=== PATIENT | male | born 1945 | race Asian ===

== ENCOUNTER 2023-10-14 22:47 | Inpatient (IN) | payer OTHER, SELFPAY ==
--- NOTE | ~2023-10-14 | XR_ITS ---
EXAMINATION: XR PRE-MRI SCREENING, 2 VIEWS CLINICAL INFORMATION: Pre-MRI screening patient unable to answer screening questions COMPARISON: None available. TECHNIQUE: 2 views of the abdomen FINDINGS: Radiopaque calcification overlying the left renal interpolar/upper pole shadow measuring 1.1 cm. Pelvic phleboliths are noted. Bowel gas is nonobstructive. Degenerative changes of the thoracolumbar lumbosacral spine with slight levocurvature of the mid lumbar spine. Elevation the right hemidiaphragm. Soft tissues are unremarkable. No radiopaque foreign bodies identified. XR/XR pre mri screening IMPRESSION: 1. Radiopaque calcification overlying the left renal interpolar/upper pole shadow measuring 1.1 cm. 2. Pelvic phleboliths are noted. 3. Bowel gas is nonobstructive. 4. Elevation the right hemidiaphragm. 5. No radiopaque foreign bodies identified.
--- NOTE | ~2023-10-14 | MR_ITS ---
EXAMINATION: MR BRAIN WITHOUT CONTRAST CLINICAL INFORMATION: Left-sided weakness COMPARISON: CT head 10/14/2023 TECHNIQUE: MRI of the brain was obtained using routine sequences without contrast. FINDINGS: There is no reduced diffusion to suggest acute infarct. Chronic small area of lacunar infarction along the anterior left external capsule. Small focus of susceptibility artifact along the left ventral bertha may represent a small vascular malformation such as a capillary telangiectasia or chronic microhemorrhage. No mass effect, extra-axial collection, midline shift, or other herniation. Empty sella turcica. Generalized cerebral volume loss with associated ventricular and sulcal prominence. Punctate T2/FLAIR hyperintense focus in the right frontal lobe is nonspecific but likely represents chronic microvascular ischemic change. Intracranial flow voids are preserved. Scattered polypoid mucosal thickening in the paranasal sinuses. Moderate left mastoid opacification. Bilateral intraocular lens replacements. No focal expansile/destructive osseous lesion. MR/MR head/brain wo con IMPRESSION: No acute infarction. Generalized cerebral volume loss with associated ventricular and sulcal prominence. Chronic changes as described above.
--- NOTE | ~2023-10-14 | FL_ITS ---
FLUOROSCOPIC GUIDED LUMBAR PUNCTURE INDICATION: Encephalopathy Risks and benefits and possible complications were discussed with the patient's son and the consent form was signed. Patient was placed prone on the fluoroscopy table. The back was prepped and draped in routine sterile fashion. Betadine was used as a skin antiseptic. Utilizing fluoroscopic guidance, the L4-5 interlaminar space was accessed with a 22 gauge Juaquin spinal needle and clear CSF fluid obtained. 12 cc of fluid was sent for analysis. The needle was removed without immediate complications. Total fluoroscopy time: 0.2 minutes min FL/FL guided lumbar puncture LP IMPRESSION: Successful Fluoroscopic lumbar puncture This procedure was performed by Orlin Garza PA-C and supervised by Dr. Espino.
--- NOTE | ~2023-10-14 | CT_ITS ---
EXAMINATION: CT chest, abdomen pelvis without IV contrast. CLINICAL INDICATIONS: Elevated lactic acid. Chest pain. COMPARISON: None. TECHNIQUE: 5 mm thin axial and reformatted 3 mm thin sagittal and coronal images of chest, abdomen and pelvis were obtained without contrast. DLP 939. This CT examination was performed using dose optimization technique as appropriate, variously including the following: Automated exposure control Adjustment of MA and/or KV according to patient size(this includes techniques or standardized protocols for targeted exams where dose is matched to indication/reason for exam; extremities or head. Use of iterative reconstruction techniques. FINDINGS: CHEST: LUNGS: The lungs are well-expanded with patchy atelectasis right upper lobe posterior segment and posterior basilar segment right lower lobe. No consolidation, mass or nodule seen. Mediastinum: The thyroid lobes are symmetrical and normal. The central trachea and the bronchi widely patent. Heart size and the great vessels are normal caliber. No pericardial effusion seen. No coronary artery calcifications. No abnormal size mediastinal or hilar lymph nodes seen. Pleura: There is a small pleural effusion or and/or thickening right lung base. Minimal posterior pleural thickening left lung base seen. Axilla: Small shotty lymph nodes seen in the right axilla. The chest wall is unremarkable. Osseous structures: No aggressive lytic or sclerotic process seen. Abdomen and pelvis: Liver, ducts and gallbladder: The liver is normal size, contour and density. No focal lesion seen. There is no intrahepatic ductal dilatation. The gallbladder is unremarkable. Spleen: Unremarkable. Pancreas: Unremarkable. Adrenal glands: Unremarkable. Kidneys and ureter: Both kidney are normal size contour and density. There is bilateral perinephric stranding. There is a large 1.2 cm upper pole left renal stone without caliectasis. No additional renal stones seen. There is no hydronephrosis. The ureters are of normal caliber. Abdominal wall: Unremarkable. GI tract: There is scattered stool and gas seen throughout the colon without significant distention. The small bowel loops are normal caliber. Appendix is not visualized. There is no free air or free fluid. Pelvis: The there is a Oneill's catheter in bladder with mild bladder wall thickening. The prostate gland is enlarged. There is no free fluid. There is left inguinal fat stranding likely scar from previous intervention. Correlate clinically. Osseous structures: No aggressive lytic or sclerotic process seen. The paravertebral soft tissues are normal. CT/CT abdomen pelvis wo IV con IMPRESSION: 1. Right upper lobe and right lower lobe atelectasis. 2. There is a small right pleural effusion and/or pleural thickening at the base. Minimal posterior pleural thickening left lung base. 3. Mild constipation without obstruction. 4. Bilateral perinephric stranding without caliectasis or hydronephrosis. There is a large 1.2 cm stone upper pole left kidney without caliectasis. 5. Mild prostate enlargement with Oneill's catheter in bladder. There is mild bladder wall thickening. 6. Left inguinal fat stranding likely scar from previous intervention.
--- NOTE | ~2023-10-14 | XR_ITS ---
EXAMINATION: XR CHEST CLINICAL INFORMATION: Fever COMPARISON: None available. TECHNIQUE: Frontal view of the chest was obtained. FINDINGS: The lungs are hypoinflated. There is suggestion of minimal bibasilar atelectasis without definite consolidation. No evidence of pneumothorax, pleural effusion, or pulmonary edema. The cardiomediastinal contour is unremarkable. No acute osseous findings are seen. XR/XR chest 1V IMPRESSION: Low lung volumes. Suggestion of minimal bibasilar atelectasis without definite consolidation.
--- NOTE | ~2023-10-14 | MR_ITS ---
EXAMINATION: MR BRAIN WITHOUT AND WITH CONTRAST CLINICAL INFORMATION: Encephalitis. COMPARISON: Recent MRI dated 10/15/2023. TECHNIQUE: Multiplanar, multisequence imaging of the brain was performed before and after the intravenous administration of 8 mL of Gadavist. 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 No midline shift evident. Nonspecific minimal scattered white matter signal changes may be due to chronic microangiopathy. Ventricular size is within normal limits. There is a faint 5 mm blush of contrast and minimal T2 hyperintensity in the left ventromedial aspect of the bertha, which may be due to an underlying capillary telangiectasia. No abnormal brain parenchymal enhancement is otherwise seen. There is mild linear pachymeningeal enhancement along both cerebral convexities, also visible to a lesser degree in the posterior fossa. The cerebellar tonsils are normal in position. The suprasellar cistern appears normal. Partially empty sella again evident. Mild prominence of CSF in the optic nerve sheaths bilaterally is better assessed on the recent prior MR exam. No new mass effect or midline shift is seen. The craniovertebral junction and marrow signal are normal. The right mastoid air cells are well aerated. There is mild mucosal thickening in the paranasal sinuses. Trace fluid visible in the dependent left mastoid air cells. 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 Mild pachymeningeal enhancement supratentorially and infratentorially. No cerebellar tonsillar ectopia. Partially empty sella. Imaging findings can be seen in the setting of intracranial hypertension, though subdural collections are typically associated with intracranial hypotension. Recommend clinical correlation. Small 5 mm focus of enhancement in the ventromedial bertha, which is nonspecific but may be due to an incidental small capillary telangiectasia.
--- NOTE | ~2023-10-14 | CT_ITS ---
EXAMINATION: CT HEAD WITHOUT CONTRAST CLINICAL INFORMATION: Transient slurred speech COMPARISON: None available. TECHNIQUE: Contiguous axial imaging was performed from the skull base to vertex without intravenous administration of contrast. This CT examination was performed using dose optimization techniques as appropriate, variously including the following: *Automated exposure control *Adjustment of mA and/or kV according to patient size (this includes techniques or standardized protocols for targeted exams where dose is matched to indication/reason for exam; i.e. extremities or head) *Use of iterative reconstruction technique DLP: 866 mGy-cm FINDINGS: There is no evidence of acute intracranial hemorrhage or territorial infarction. No abnormal mass-effect or midline shift is seen. Albright to white matter differentiation is well preserved. No extra-axial fluid collections are identified. The ventricles are normal in size. Small chronic appearing lacunar infarct noted in the left external capsule. Moderate volume loss is noted. The osseous structures and soft tissues are normal. Partially opacified left mastoid air cells. Slight mucosal thickening of the left maxillary sinus. CT/CT head/brain wo IV con IMPRESSION: No acute intracranial pathology. Chronic appearing changes as noted above.
--- NOTE | 2023-10-14 22:55 | ECG_ITS ---
Test Reason : WEACKNESS Blood Pressure : / mmHG Vent. Rate : 112 BPM Atrial Rate : 112 BPM P-R Int : 158 ms QRS Dur : 074 ms QT Int : 320 ms P-R-T Axes : 070 030 063 degrees QTc Int : 436 ms Sinus tachycardia Otherwise normal ECG No previous ECGs available Referred By: Rosa Dahl Electronically Signed By:Garrison Vaca
[2023-10-14 22:56] LABS: Glucose, Whole Blood 411 mg/dL (60-115)
[2023-10-14 22:59] VITALS: BP 180/110
--- NOTE | 2023-10-14 23:00 | PC.NURSE ---
Pt A&Ox3, Tamil speaking, understands some Tajik, son at bedside, reports DOTY x 2 days after a fall with + head strike. Tonight son reported Pt had left side facial droop, slurred speech and left sided weakness, on arrival symptoms resolved. Pt following commands, No facial droop noted, equal hand skin therapist, no arm drift noted, equal lower extremity strength. Pt placed on bedside monitor, labs collected and sent to lab.
[2023-10-14 23:01] VITALS: BP 180/111; PULSE 113; RESP 17; TEMP 36.3; O2SAT 98; BMI 24.0
--- NOTE | 2023-10-14 23:09 | ED.NEUROSD ---
HPI - Neuro Symptoms/Deficit General Chief Complaint: Stroke Stated Complaint: SUDDEN SLURRED SPEECH,L SIDE FACIAL DROOP Time Seen by Provider: 10/14/23 22:54 Source: patient, family and EMS Mode of arrival: EMS History of Present Illness HPI Narrative: 77-year-old male arrives via EMS with symptoms completely resolved, son is at bedside and overall history is at patient woke up at around 22:00 and the noted slurred speech as well as a left-sided facial droop which has completely resolved at the time of patient's arrival and it was associated with left-sided weakness. Patient reports a headache for 2 days after a fall and head strike and not currently on chronic anticoagulation. Patient is noted to be hyperglycemic and hypertensive. Related Data Allergies Allergy/AdvReac Type Severity Reaction Status Date / Time No Known Allergies Allergy Verified 10/15/23 00:01 Review of Systems Review of Systems: Pertinent positives and negatives as stated in HPI PMFSH Past Medical History Source: nursing notes reviewed Social History Social History Advance Directives: No Advance Directives Information Provided: No Physical Exam Vital Signs: Vital Signs: Last Vital Signs Temp 99.4 F 10/14/23 23:23 Pulse 121 H 10/14/23 23:44 Resp 20 10/14/23 23:44 BP 139/79 10/14/23 23:44 Pulse Ox 99 10/14/23 23:44 O2 Del Method Nasal Cannula 10/14/23 23:44 O2 Flow Rate 2 10/14/23 23:44 BMI result Body Mass Index 24.0 VITAL SIGNS: Reviewed. GENERAL: Well developed, well nourished, in no acute distress. HEAD: Normocephalic/atraumatic EYES: PERRLA, EOMI EARS: Ext canals without abnormality NOSE: Nares patent bilateral OROPHARYNX: no oral lesions noted, posterior pharynx clear NECK: Supple, no adenopathy LUNGS: Normal breath sounds. No adventitious sounds or accessory muscle use. SpO2<98> CARDIOVASCULAR: Regular rate and rhythm without noted murmurs ABDOMEN: Soft, non-tender, non-distended with bowel sounds. MUSCULOSKELETAL: No tenderness, deformities, or effusions noted on gross inspection. EXTREMITIES: No cyanosis, clubbing or edema. SKIN: Inspection of the skin reveals no rashes NEUROLOGIC: Alert and oriented x 4. Strength and sensation to light touch were grossly intact x 4, NIH-0. Medications Administered Generic Name Dose Route Start Last Admin Trade Name Freq PRN Reason Stop Dose Admin Sodium Chloride 1,000 mls @ 999 mls/hr 10/15/23 00:15 10/15/23 00:18 Ns IV 10/15/23 01:15 999 mls/hr .Q1H1M TONYA Administration Discontinued Medications Generic Name Dose Route Start Last Admin Trade Name Freq PRN Reason Stop Dose Admin Lorazepam 2 mg 10/14/23 23:15 10/14/23 23:20 Lorazepam 2 Mg/Ml Vial IVPUSH 10/14/23 23:16 2 mg ONCE ONE Administration Medical Decision Making Medical Decision Making [facility] Narrative: 77-year-old male with history and clinical presentation of some shaking reported by the in addition to the neuro deficits. All symptoms have resolved at this time suspect possible TIA versus subdural. 2320: Informed by nursing of [facility] and on evaluating patient at bedside he presents with tonic clonic seizure with leftward gaze. Gave 2mg Ativan. 0030: On re-evaluation patient remains postictal, he is actively moving the right upper extremity as well as the right lower extremity, on painful stimuli he does retract from painful source on the left side but does not appear to be spontaneously moving, pupils remain symmetrical and reactive, patient is hemodynamically stable although remains tachycardic and is currently getting IV fluids and is afebrile. CT scan negative for evidence of intracranial bleed or mass effect. Blood pressure has significantly improved and reaching out to Neurology at this time for further direction. I have spoken with the family at bedside and they deny any recent changes in behaviors, no changes in medications, and no recent travel, patient's last travel was in July. The seizures are certainly new. On review of patient's kidney function he is diabetic and has an CYNTHIA although there are no other lab findings to better quantify. 0040: I discussed case with Neurology who recommends admission for further evaluation of seizure activity, tPA contraindicated given seizures. Patient is afebrile and LP not indicated this time, will Keppra load. 0042: I discussed case with inpatient hospitalist who accepts admission. Differential Diagnosis Differential Diagnoses: The differential diagnosis associated with the presentation includes Please see the discussion above Admission/Observation Consideration of admission/observation: Escalation of care including admission/observation considered Please see the discussion above Consult Healthcare Provider Management of the patient was discussed with: Hospitalist and Document Management Technician Please see the discussion above Lab Data MDM Lab Attestation statement: I reviewed the patient's lab results. Please see the discussion above 10/14/23 23:14 10/14/23 23:14 Labs: Lab Results 10/14/23 10/14/23 Range/Units 22:52 23:14 WBC 9.2 (4.8-10.8) X10*3/uL RBC 4.40 L (4.60-5.80) X10*6/uL Hgb 13.0 L (14.0-18.0) g/dl Hct 38.7 L (42.0-52.0) % MCV 88.0 (80.0-98.0) fL MCH 29.5 (27.0-33.0) pg MCHC 33.6 (31.0-36.0) g/dl RDW 13.2 (11.0-16.0) % Plt Count 167 (160-400) X10*3/uL MPV 12.5 H (9.4-12.4) fL Immature Gran % (Auto) 0.4 (0.0-0.4) % Neut % (Auto) 53.4 (45-73) % Lymph % (Auto) 30.8 (20-40) % Sebastian % (Auto) 8.6 (2-11) % Eos % (Auto) 5.8 H (0-4) % Baso % (Auto) 1.0 (0-2) % Lymph # (Auto) 2.8 (1.2-4.9) X10*3/uL Sebastian # (Auto) 0.8 (0.1-1.2) X10*3/uL Eos # (Auto) 0.5 H (0.0-0.4) X10*3/uL Baso # (Auto) 0.1 (0.0-0.2) X10*3/uL Abs Immat Gran (auto) 0.04 H (0.00-0.03) X10*3/uL Absolute Neuts (auto) 4.9 (2.0-8.3) x10*3/uL Absolute Nucleated RBC 0.000 (0.0-0.012) X10*3/uL Nucleated RBC % (auto) 0.0 (0.0-0.2) /100WBC PT 11.3 (11.1-13.3) SEC INR 0.9 (0.9-1.1) Sodium 138 (135-145) mmol/L Potassium 4.1 (3.3-5.1) mmol/L Chloride 102 (96-108) mmol/L Carbon Dioxide 25 (22-29) mmol/L Anion Gap 15 (12-20) BUN 19 H (9-16) mg/dL Creatinine 1.54 H (0.5-1.4) mg/dL Estim Creat Clear Calc 40.1 Estimated GFR 44 POC Glucose 411 H* (60-115) mg/dL Random Glucose 452 H* (60-115) mg/dL Calcium 8.8 (8.4-10.2) mg/dL Total Bilirubin 0.5 (0.0-1.0) mg/dL AST 28 (5-37) U/L ALT 56 H (0-40) U/L Alkaline Phosphatase 94 (39-117) U/L Total Protein 7.4 (6.5-8.0) g/dL Albumin 3.8 (3.5-5.0) g/dL COVID-19 ([place]) Negative (Negative) COVID-19 Clin Com See Note Influenza Type A (TOPHER) Negative (Negative) Influenza Type B (TOPHER) Negative (Negative) Influenza A & B Note See Note Independent Interpretation I performed an independent interpretation of an: EKG Interpretation: Sinus tachycardia, no STEMI, SD/QRS/QTC is within normal limits. Radiology Impression Discussion of test interpretation with radiology: I have reviewed the radiologist's reading. Radiologist Impression: Please see the discussion above Chronic Conditions Patient?s care impacted by: Diabetes and Hypertension NIH Stroke Scale Internal: Initial- Upon Arrival Level of Consciousness: Alert Level of Consciousness Questions: Answers both questions correctly Level of Consciousness Commands: Performs both tasks correctly Best Gaze: Normal Visual: No visual loss Facial Palsy: Normal Motor Arm (Right): No drift Motor Arm (Left): No drift Motor Leg (Right): No drift Motor Leg (Left): No drift Limb Ataxia: Absent Sensory: Normal Best Language: No aphasia Dysarthia: Normal Extinction and Inattention: No abnormality Score: 0 Critical Care Time Critical Care Time Critical Care Time: Yes Total Critical Care Time: 60 Attestation: I personally attest to this time spent taking care of the patient. Discharge Plan Discharge Clinical Impression: Transient cerebral ischemia, New onset seizure Patient Disposition: Admitted As Inpatient
[2023-10-14] MEDS: LORazepam 2 MG/ML VIAL IVPUSH (23:20)
[2023-10-14 23:23] VITALS: BP 217/95; PULSE 121; RESP 18; TEMP 37.4
[2023-10-14 23:24] LABS: Basophils Absolute Auto 0.1 X10*3/uL (0.0-0.2); Eosinophils Absolute Auto 0.5 X10*3/uL (0.0-0.4); Eosinophils Percent Auto 5.8 % (0-4); Hematocrit 38.7 % (42.0-52.0); Imm Gran Abs Auto 0.04 X10*3/uL (0.00-0.03); Imm Gran Pct Auto 0.4 % (0.0-0.4); Lymphocytes Absolute Auto 2.8 X10*3/uL (1.2-4.9); Lymphocytes Percent Auto 30.8 % (20-40); MANUAL DIFF FLAG NO; Mean Corpuscular HGB Conc 33.6 g/dl (31.0-36.0); Mean Corpuscular Hemoglobin 29.5 pg (27.0-33.0); Mean Platelet Volume 12.5 fL (9.4-12.4); Monocytes Absolute Auto 0.8 X10*3/uL (0.1-1.2); Monocytes Percent Auto 8.6 % (2-11); Neutrophils Absolute Auto 4.9 x10*3/uL (2.0-8.3); Neutrophils Percent Auto 53.4 % (45-73); Platelet Count 167 X10*3/uL (160-400); Red Cell Distribution Width 13.2 % (11.0-16.0); White Blood Count 9.2 X10*3/uL (4.8-10.8)
[2023-10-14 23:30] LABS: INTERNATIONAL NORM RATIO 0.9 (0.9-1.1); Prothrombin Time 11.3 SEC (11.1-13.3)
--- NOTE | 2023-10-14 23:33 | PC.NURSE ---
Pt not responding to commands, son reported similar symptoms at home. Dr. Dahl made aware and at bedside, Pt having seizure like activity. Medicated per NOV. Pt brought over to CT.
[2023-10-14 23:37] LABS: COVID-19 Test Negative (Negative); IDNOW Serial# 08D9AD1C; IDNOW Serial# 152EDE1D; Influenza A Negative (Negative); Influenza B2 Negative (Negative)
[2023-10-14 23:42] LABS: Alanine Aminotransferase 56 U/L (0-40); Albumin Level 3.8 g/dL (3.5-5.0); Alkaline Phosphatase 94 U/L (39-117); Anion Gap 15 (12-20); Aspartate Amino Transferase 28 U/L (5-37); Bilirubin Total 0.5 mg/dL (0.0-1.0); Blood Urea Nitrogen 19 mg/dL (9-16); Calcium 8.8 mg/dL (8.4-10.2); Carbon Dioxide 25 mmol/L (22-29); Chloride 102 mmol/L (96-108); Creatinine Clr Calc Pharmacy 40.1; Estimated Glomerular Filt Rate 44; Glucose Random 452 mg/dL (60-115); Potassium 4.1 mmol/L (3.3-5.1); Sodium 138 mmol/L (135-145); Total Protein 7.4 g/dL (6.5-8.0)
[2023-10-14 23:44] VITALS: BP 139/79; PULSE 121; RESP 20; O2SAT 99
[2023-10-15] VITALS (24 sets, daily range): BP systolic 126–178; BP diastolic 77–98; PULSE 113–135; RESP 16–22; TEMP 38.5–39.9; O2SAT 96–100
--- NOTE | 2023-10-15 | EEG_ITS ---
FINDINGS: The background activity consists of low-voltage background with superimposed muscle artifacts throughout the record. Photic stimulation and hyperventilation were omitted. IMPRESSION: This is a low voltage EEG with an abundance of muscle artifact. There is no slowing or paroxysmal features identified. Impression, this EEG shows an abundance of muscle artifacts and very little low amplitude cerebral activity. 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 Clinical correlation is suggested. No seizure discharges are seen. MD SOFIA Nair/RACHEL / [phone]
[2023-10-15] MEDS: 0.9 % Sodium Chloride 1,000 ML 999 ML IV ×2 (00:18→02:50)
[2023-10-15] MEDS: levETIRAcetam in NaCl (iso-os) 1,000 MG/100 ML PIGGYBACK 400 MG IV (01:24)
--- NOTE | 2023-10-15 01:41 | PC.NURSE ---
Per son Pt takes 3 meds at home. Metformin, Nervogen, and clinidipine.
[2023-10-15] MEDS: Insulin Regular, Human 100 UNIT/ML 3 ML VIAL 7 UNIT IVPUSH (02:46)
--- NOTE | 2023-10-15 03:40 | P.HPHOSP_ITS ---
History of Present Illness Date of Service: 10/15/23 Attending physician on admission: Yovana Shah Chief Complaint: Seizure Ranulfo Boateng is a 77 years old man with past medical history significant for type 2 diabetes mellitus on metformin was brought to the emergency department after he had an episode of seizures last night around 21:45. HPI was provided by patient's son as the patient received treatment with Ativan and Keppra and seems to be sedated. Son noted patient happily facial droop and left arm weakness. Patient was brought to the emergency department by EMS. After having the episode of seizure the patient was interactive and having a normal conversation with paramedics. The patient had another episode of seizure in the emergency department and received treatment with Ativan and Keppra. Son also stated that the patient was complaining of a headache for 2 days after sustaining a fall. The patient does not take aspirin or anticoagulation. In the ED, he was found to have marked hypertension of 217/95, however most recent one is 126/81. He has a mild degree of sinus tachycardia. Head CT scan without contrast showed no acute intracranial abnormality. Head and neck CTA was not performed. Blood workup showed no leukocytosis or significant electrolyte imbalances. Bicarb is normal. His creatinine is 1.54 (no baseline found). His blood glucose 482. According to ED provider case has been discussed with neurologist on-call. No tPA given. ED tx: Lorazepam 2 mg IV, Keppra 1 g IV. Review of Systems 2 Review of Systems: Yes Unobtainable due to mental status PMFSH Social History Advance Directives: No Advance Directives Information Provided: No Meds Allergies Allergy/AdvReac Type Severity Reaction Status Date / Time No Known Allergies Allergy Verified 10/15/23 00:01 Active Medications: Current Medications Aspirin (Aspirin Enteric Coated 81 Mg Tablet.) 81 mg PO DAILY TONYA Dextrose (Dextrose 50 % 25 Gm/50 Ml Syringe) 25 gm IVPUSH Q15M PRN; Protocol PRN Reason: per Hypoglycemia Standing Ord. Glucose (Glucose Gel 15 Gm Gel..Gram.) 15 gm PO Q15M PRN; Protocol PRN Reason: per Hypoglycemia Standing Ord. Sodium Chloride (Ns) 1,000 mls @ 100 mls/hr IVCONT .Q10H TONYA Levetiracetam 750 mg/ Sodium (Chloride) 107.5 mls @ 430 mls/hr IV Q12H TONYA Sodium Chloride (Ns) 500 mls @ 500 mls/hr IV .Q1H TONYA Stop: 10/15/23 03:59 Insulin Human Lispro (Insulin Lispro 100 Unit/Ml 3 Ml Vial) 0 unit SUBCUT Q6H TONYA; Protocol Lorazepam (Lorazepam 2 Mg/Ml Vial) 2 mg IVPUSH ONCE PRN PRN Reason: seizure Physical Exam 2 Vital Signs and Narrative: Vital Signs: Last Vital Signs Temp 99.4 F 10/14/23 23:23 Pulse 114 H 10/15/23 01:29 Resp 18 10/15/23 01:29 BP 126/81 10/15/23 01:29 Pulse Ox 100 10/15/23 01:29 O2 Del Method Nasal Cannula 10/15/23 01:29 O2 Flow Rate 2 10/15/23 01:29 BMI result Body Mass Index 24.0 Constitutional - Lethargic. Going to follow commands HEENT - PERRL, EOMI Cardiovascular - RRR, no murmurs. Respiratory - Normal lung expansion, Normal respiratory effort, No respiratory distress, CTA bilaterally Gastrointestinal - NT / ND; +BS; No rebound or guarding Extremities - no calf tenderness bilaterally, no swelling Musculoskeletal - Normal inspection, normal ROM Skin - Warm/Dry Neurological - Lethargic, aphasic. Palpable equally round reactive to light. Do not follow commands. There is an obvious paralysis of the left arm. Left extremity weaker than the right lower extremity. Results Labs 10/14/23 23:14 10/14/23 23:14 Labs: Laboratory Results - last 24 hr 10/14/23 10/14/23 22:52 23:14 MCV 88.0 MCH 29.5 MCHC 33.6 RDW 13.2 Plt Count 167 MPV 12.5 H Immature Gran % (Auto) 0.4 Neut % (Auto) 53.4 Lymph % (Auto) 30.8 [place] % (Auto) 8.6 Eos % (Auto) 5.8 H Baso % (Auto) 1.0 Lymph # (Auto) 2.8 [place] # (Auto) 0.8 Eos # (Auto) 0.5 H Baso # (Auto) 0.1 Abs Immat Gran (auto) 0.04 H Absolute Neuts (auto) 4.9 Absolute Nucleated RBC 0.000 Nucleated RBC % (auto) 0.0 PT 11.3 INR 0.9 Anion Gap 15 Estim Creat Clear Calc 40.1 Estimated GFR 44 POC Glucose 411 H* Random Glucose 452 H* Calcium 8.8 Total Bilirubin 0.5 AST 28 ALT 56 H Alkaline Phosphatase 94 Total Protein 7.4 Albumin 3.8 COVID-19 (YULIANA) Negative COVID-19 Clin Com See Note Influenza Type A (TOPHER) Negative Influenza Type B (TOPHRE) Negative Influenza A & B Note See Note Imaging Radiologist's Impressions: Impressions Head CT 10/14/23 23:40 IMPRESSION: No acute intracranial pathology. Chronic appearing changes as noted above. Assessment and Plan (1) New onset seizure: Status: Acute (2) Acute CVA (cerebrovascular accident): Status: Acute Plan Ranulfo Boateng is a 77 years old man admitted with: * Left-sided weakness likely secondary to acute stroke causing seizures. Admit to hospitalist service. Telemetry. Aspiration precautions Neuro checks every 2 hours. Check troponin, lipid panel and hemoglobin A1c. PT/OT/speech evaluation and treatment. Start therapy with aspirin and atorvastatin. Obtain MRI and echocardiogram with bubble study. Continue triple with Keppra 750 mg p.o. twice daily. Ativan 2 mg IV as needed for seizures. Neurology consult. * Uncontrolled type 2 diabetes mellitus/hyperglycemia. Metformin on hold. Blood glucose monitoring every 6 hours while NPO. Insulin sliding scale as needed. Continue IV fluids. * Elevated creatinine. Baseline creatinine unknown. Continue IV fluid. Continue to monitor renal function. Avoid nephrotoxic agents. DVT prophylaxis: Heparin subcut. Code status: Full (d/w son). Patient will need hospitalization for at least 2 midnight for stroke and seizure evaluation and treatment. Patient will need treatment with aspirin and statins, close monitoring of neurological state and imaging with echocardiogram and brain MRI as well as evaluation by specialists. Quality Stroke Does the patient have a stroke diagnosis?: Yes Reason for No Anti-thrombotic by Day Two: N/A - Med Ordered VTE Prior VTE?: No VTE Risk Level:: Medical - moderate - high VTE Device Contraindication: N/A - Device Ordered VTE Drug Contraindication: N/A - Med Ordered
[2023-10-15] MEDS: 0.9 % Sodium Chloride 500 ML IV (03:53)
[2023-10-15 04:06] LABS: Glucose, Whole Blood 384 mg/dL (60-115)
[2023-10-15 04:06] LABS: Glucose, Whole Blood 317 mg/dL (60-115)
[2023-10-15] MEDS: 0.9 % Sodium Chloride 1,000 ML 100 ML IVCONT (04:19)
[2023-10-15 04:20] LABS: Appearance Urine Clear; Color Urine Yellow; Glucose Urine UA >=1000 mg/dL (Negative); Leukocyte Esterase Urine Negative (Negative); Nitrite Urine Negative (Negative); Specific Gravity - Urine 1.025 (1.005-1.025); UMIC TRIGGER UACC YES; Urine Blood Trace (Negative); Urine Ketones Negative (Negative); Urine Protein Negative (Neg-Trace)
[2023-10-15 04:25] LABS: Bacteria Urine None Seen (None Seen); Hyaline Casts Urine 0-2 /LPF (0-2); RBC Urine 0-2 /HPF (0-2); Squamous Epithelial Cell Urine 0-2 /HPF (0-2); WBC Urine 0-5 /HPF (0-5)
[2023-10-15] MEDS: Aspirin 300 MG SUPP.RECT PR ×2 (04:28→09:23)
[2023-10-15 06:01] LABS: Glucose, Whole Blood 283 mg/dL (60-115)
[2023-10-15 06:05] LABS: Troponin-I High Sensitivity 6.8 ng/L (<3.5-35.0)
[2023-10-15] MEDS: Acetaminophen Supp 650 MG SUPP.RECT PR ×3 (06:09→23:05)
[2023-10-15] MEDS: Insulin Lispro 100 UNIT/ML 3 ML VIAL SUBCUT ×2 (06:11→14:22)
--- NOTE | 2023-10-15 06:19 | PC.NURSE ---
Pt continues to be postictal, responds to painful stimuli, incontinent of urine. Pt febrile, provider DR. Fischer made aware, new order given as documented. Son at bedside updated on plan of care.
--- NOTE | 2023-10-15 07:00 | CA_ITS ---
Transthoracic Echocardiogram Patient (Last, First, Middle): Ranulfo Diaz, Gender: Male Date of : 1945 Age: 77 Procedure Date: 10/15/2023 Procedure Type: Transthoracic Echocardiogram Location: ER Height: 177.8 cm Weight: 75.75 kg BSA: 1.93 m2 Heart Rate: bpm BP: 144 / 95 mmHg Felt Hooker: Referring MD: Yovana Shah MD Symptoms: stroke Study Quality: Fair, contrast Conclusions: - Normal left ventricular size and systolic function. There is mildly increased left ventricular wall thickness. The visually estimated ejection fraction is between 60-65%. There is no evidence of regional wall motion abnormalities. Diastolic function is indeterminate on the basis of available data. - Normal right ventricular cavity size and systolic function. Findings Procedure Information Contrast agent, definity, is being given per protocol without apparent complications. Left Ventricle Normal left ventricular size and systolic function. There is mildly increased left ventricular wall thickness. The visually estimated ejection fraction is between 60-65%. There is no evidence of regional wall motion abnormalities. Diastolic function is indeterminate on the basis of available data. Right Ventricle Normal right ventricular cavity size and systolic function. Atria The left atrium is normal in size. Aortic Valve The aortic valve was not well visualized. There is no aortic valve stenosis. There is no aortic valve regurgitation. Mitral Valve Likely normal mitral valve structure and function. There is no mitral valve regurgitation. There is no mitral valve stenosis. Pulmonic Valve The pulmonic valve was not well visualized. Tricuspid Valve The tricuspid valve was not well visualized. Tricuspid regurgitation envelope is inadequate for calculation of right ventricular systolic pressure. Normal right atrial pressure. Great Vessels All visible segments of the aorta are normal in size. Venous The inferior vena cava is normal in size and collapses greater than 50% with inspiration. Pericardium/Pleural Prominent epicardial adipose tissue noted. There is no evidence of pericardial effusion. Prior Study Comparison No prior study available for comparison. Measurements 2D Linear Measurements IVSd: 1.22 0.6-0.9/0.6-1.0 cm LVIDd: 3.59 3.9-5.3/4.2-5.9 cm LVIDd Index: 1.86 2.4-3.2/2.2-3.1 cm/m2 LVIDs: 2.35 2.0-3.6 cm LVPWd: 1.24 0.7-1.1 cm Ao Root: 2.90 2.1-3.5 cm LA Diam: 2.30 2.7-3.8/3.0-4.0 cm LAIDs Index: 1.19 1.5-2.3 cm/m2 LV Mass: 182.18 67-162/88-224 g LV Mass Index: 94.40 43-95/49-115 g/m2 LVOT Diam: 2.00 3.0+(-)1.3 cm Mitral Valve MV Pk E: 0.77 MV PK A: 1.34 MV Decel Time: 119.00 E/A: 0.60 E'Lateral: 3.70 E'Medial: 4.13 E/E' Med: 18.60 E/E' Lat: 20.70 PHT: 35.00 MVA PHT: 6.29 Decel School[place]: 6.45 Aortic Valve AoV Pk Abdiel: 1.59 AoV Mn Abdiel: 1.09 AoV VTI: 0.26 AoV Pk Grad: 10.00 Aov Mn Grad: 6.00 JOHN Cont.VTI: 2.75 LVOT LVOT Pk Abdiel: 1.23 LVOT Mn Abdiel: 0.77 LVOT VTI: 0.23 LVOT Pk Grad: 6.00 LVOT Mn Grad: 3.00 LVOT Diam: 2.00 LVOT Area: 3.14 Diastolic Function MV Pk E: 0.77 MV Pk A: 1.34 E/A: 0.60 E'Medial: 4.13 E/E' Med: 18.60 E' Laterial: 3.70 E/E' Lat: 20.70 Right Ventricle TAPSE (mm): 24.90 TVS' Abdiel: 12.00 Tricuspid Valve TR Pk Abdiel: 1.87 TR Pk Grad: 14.00 Great Vessels Aorta Ao Root-2D: 2.90 2.0-3.7 cm Ao Asc: 3.40 2.1-3.4 cm Pulmonary Valve PV Pk Abdiel: 0.77 Peak PV Grad: 2.00 Updated in Other Vendor System with Status of Final Garrison Vaca MD electronically signed on 10/15/2023 11:52:49 AM with status of Final
[2023-10-15 07:35] LABS: Lactic Acid 2.9 mmol/L (0.5-2.0)
--- NOTE | 2023-10-15 07:43 | PC.NURSE ---
Lactic 2.9, Dr. De Oliveira notified. Patient sleeping, vss. Phelbotomy at bedside to draw 2nd set of cultures. MRI screening form completed with son. Son declining to sign form stating his father can sign. Patient sleeping unable to sign form, son stating his family dr told him not to sign forms because his father can sign them hismelf. MRI screening form faxed to MRI. Rectal temp 103.9- provider aware
[2023-10-15 07:48] LABS: Glucose, Whole Blood 277 mg/dL (60-115)
[2023-10-15 07:56] LABS: Basophils Absolute Auto 0.1 X10*3/uL (0.0-0.2); Basophils Percent Auto 0.7 % (0-2); Eosinophils Percent Auto 0.3 % (0-4); Hematocrit 43.7 % (42.0-52.0); Hemoglobin 14.5 g/dl (14.0-18.0); Imm Gran Abs Auto 0.09 X10*3/uL (0.00-0.03); Imm Gran Pct Auto 0.6 % (0.0-0.4); Lymphocytes Absolute Auto 1.8 X10*3/uL (1.2-4.9); Lymphocytes Percent Auto 11.7 % (20-40); Mean Corpuscular HGB Conc 33.2 g/dl (31.0-36.0); Mean Corpuscular Hemoglobin 29.4 pg (27.0-33.0); Mean Corpuscular Volume 88.6 fL (80.0-98.0); Mean Platelet Volume 12.3 fL (9.4-12.4); Monocytes Absolute Auto 0.6 X10*3/uL (0.1-1.2); Monocytes Percent Auto 3.8 % (2-11); Neutrophils Absolute Auto 12.8 x10*3/uL (2.0-8.3); Neutrophils Percent Auto 82.9 % (45-73); Platelet Count 164 X10*3/uL (160-400); Red Blood Count 4.93 X10*6/uL (4.60-5.80); Red Cell Distribution Width 13.3 % (11.0-16.0); White Blood Count 15.4 X10*3/uL (4.8-10.8)
[2023-10-15 08:07] LABS: MANUAL DIFF FLAG NO
--- NOTE | 2023-10-15 08:23 | PC.NURSE ---
Phlebotomy unable to obtain 2nd set of cultures. Patient remains sleepy, unable to safety trial po liquids at this time
[2023-10-15 08:40] LABS: Creatinine Clr Calc Pharmacy 41.7; Estimated Glomerular Filt Rate 46
--- NOTE | 2023-10-15 08:42 | PC.NURSE ---
Brought to MRI by transport
[2023-10-15 08:53] LABS: Reflex Lactate? Lactic Acid Added
--- NOTE | 2023-10-15 09:00 | PC.NURSE ---
Patient in mri, per provider when returns hang abt, give tylenol sup. Provider to see patient while in MRI
--- NOTE | 2023-10-15 09:04 | PHA.MEDREC ---
Addendum entered by Brittni Caba samantha 10/15/23 09:20: Per Dr. De Oliveira patient is NPO, he is aware that medications are left unconfirmed pending dosage confirmation Original Note: Pharmacy Consult ? Medication Reconciliation Pharmacy has completed the medication reconciliation. PAtient's's son at bedside, had list of medications on phone but no doses and he was unsure as his father is visiting from [place]. The text one his phone stated glimeperide, metformin, clinidipine and nervogen. Reached out to provider about which doses to add to med rec; pending answer.
--- NOTE | 2023-10-15 09:06 | PHA.PROG ---
Addendum entered by Zuleyma Chinchilla [facility] 10/15/23 09:33: DOSES ARE TIMED TO START AT 0900 ON 10/16 AND LEVEL WILL ACTUALLY BE 10/18 @0700 Original Note: Admission Date/Time: October 15, 2023 02:50 Indication: SEPSIS Weight in k.8 kg Adjusted body weight in K.12 Joanna body weight in K Obesity Dosing Indication % IBW: Serum Creatinine - Last 168 Hours 10/14/23 10/15/23 23:14 07:50 Creatinine 1.54 H 1.48 H Estimated CrCl and GFR - Last 168 Hours 10/14/23 10/15/23 23:14 07:50 Estim Creat Clear Calc 40.1 41.7 Estimated GFR 44 46 Vancomycin Loading Dose: 2000 Current Vancomycin Dosing Regimen: 1000 Q24h Vancomycin Monitoring using AUC goal of 400 - 600 range with trough as surrogate marker: 503 Date and Time for next Vancomycin Level to be drawn: 10/16/23 @2100 Pharmacist Comments on Vancomycin Plan: WITH Q24H DOSING THE LEVEL WOULD HAVE BEEN PULLED OVERNIGHT WITH NO [facility] TO INTERPRET LEVEL THEREFORE I RETIMED THE DOSES TO BE GIVEN AT 2300 SO LEVEL CAN BE PULLED AT 2100 Vancomycin dosing will take advantage of [employer] as a clinical decision support tool that uses Bayesian modeling to calculate individual patient's pharmacokinetic parameters and forecast the patient's drug concentration time course with the target goal AUC 24 range of 400 - 600 mg/L/hr.
[2023-10-15] MEDS: levETIRAcetam 750 MG in 0.9 % Sodium Chloride 100 ML 430 MG IV ×2 (09:22→21:46)
--- NOTE | 2023-10-15 09:22 | MHC.CM.PN ---
PT IS NOT ALERT AT THIS TIME. PTS SON LEX ([phone]) IS AT BEDSIDE, CM INTAKE ASSESSMENT COMPLETED WITH HIM. PT LIVES IN [place], AND IS INDEPENDENT/SELF-CARE AT BASELINE. HE IS TEMPORARILY STAYING WITH HIS SON FOR A VISIT. PCP IN [place]. NO HCP, PT UNABLE TO MAKE ONE. DCP TBD PENDING PTS CONDITION, AND PT/OT EVAL WHEN ABLE.
[2023-10-15] MEDS: Heparin Sodium,Porcine 5,000 UNIT/ML VIAL 5000 UNIT SUBCUT ×2 (09:29→16:48)
--- NOTE | 2023-10-15 09:37 | MHC.SLORD ---
Speech Language Pathology Order Status: DEMURRAGE MAN consult received. Per MD, hold DEMURRAGE MAN consult at this time.
[2023-10-15] MEDS: Lactated Ringers 1,000 ML 150 ML IVCONT (09:42)
[2023-10-15] MEDS: Acetaminophen 1,000 MG/100 ML PIGGYBACK 400 MG IV (10:02)
[2023-10-15] MEDS: cefTRIAXone sodium 2 GM in 0.9 % Sodium Chloride 50 ML IV (10:07)
--- NOTE | 2023-10-15 10:09 | PC.NURSE ---
Bed side echo being performed. Patient sleeping, breathing even and unlabored. Sinus tacy on monitor, medicated per mar. Son at bedside
[2023-10-15 10:23] LABS: ~Lactic Acid-LAB USE ONLY 2.9 mmol/L (0.5-2.0)
[2023-10-15] MEDS: Ampicillin Sodium 2 GM in 0.9 % Sodium Chloride 100 ML IV ×3 (10:32→20:54)
--- NOTE | 2023-10-15 10:39 | PC.NURSE ---
Per Dr. De Oliveira okay to go to MRI, MRI called stating they will be here within 15 minute
--- NOTE | 2023-10-15 11:06 | PC.NURSE ---
16fr 10cc ozuna placed, with 100mls immediate output. Abdomen firm with distension, notified
--- NOTE | 2023-10-15 11:14 | PC.NURSE ---
Patient at MRI, abdomen with distension, son stating appears normal to him. Provider notified. Oneill draining clear yellow urine
[2023-10-15 11:36] LABS: Reflex Lactate? 2 Y
[2023-10-15 12:19] LABS: Estimated Average Glucose 249 mg/dL; Hemoglobin A1c % 10.3 % (<6.0)
[2023-10-15 13:31] LABS: Glucose, Whole Blood 179 mg/dL (60-115)
--- NOTE | 2023-10-15 14:06 | PM.EVENT ---
Event Note Date of Service: 10/15/23 Event Note: Procedure Note: Fluoroscopic lumbar puncture Indications: Fever, AMS L4-5, Opening pressure 25 cm h20. 12 cc clear csf removed and sent for analysis Orlin GONSALEZ Time Spent With Patient Time: Total time managing care of this patient today ____ minutes.
--- NOTE | 2023-10-15 14:57 | PC.NURSE ---
Remains on cooling blanket Temp 102, provider aware. Sins tacy on monitor, seen by ICU MD. Currently off unit receiving EEG.
[2023-10-15 15:19] LABS: CSF Appearance Clear, Colorless; CSF Tube # 2
[2023-10-15 15:54] LABS: Glucose CSF 195 mg/dL; Total Protein CSF 227.4 mg/dL (15-45)
--- NOTE | 2023-10-15 15:56 | PC.NURSE ---
Returned from EEG, tem0 1022, sinus tacy, provider notfiied. Placed back on cooling blanket
[2023-10-15 16:33] LABS: Neutrophils CSF 14 %
[2023-10-15 16:36] LABS: CSF Monos 3 %; Cryptococcus neoformans/gattii Not Detected (Not Detect.); Enterovirus Not Detected (Not Detect.); Escherichia coli K1 Not Detected (Not Detect.); Haemophilus influenzae Not Detected (Not Detect.); Herpes simplex virus 1 Not Detected (Not Detect.); Herpes simplex virus 2 Not Detected (Not Detect.); Human herpesvirus 6 Not Detected (Not Detect.); Human parechovirus Not Detected (Not Detect.); Listeria monocytogenes Not Detected (Not Detect.); Lymphocytes CSF 83 %; Neisseria meningitidis Not Detected (Not Detect.); Streptococcus agalactiae Not Detected (Not Detect.); Streptococcus pneumoniae Not Detected (Not Detect.); Varicella zoster virus Not Detected (Not Detect.)
[2023-10-15 16:37] LABS: CSF Monos 5 %; Lymphocytes CSF 88 %; Neutrophils CSF 7 %
[2023-10-15 16:39] LABS: CSF Tube # 1
--- NOTE | 2023-10-15 16:51 | P.PNCC_ITS ---
Critical Care Event Note Summary Date of Service: 10/15/23 Code activated: No Narrative: 77-year-old gentleman admitted on 10/15/2023 to telemetry jesus with new onset seizures and persistent encephalopathy, now status post lumbar puncture and EEG with results pending, accepted to [facility] now transferred to intensive care unit for close monitor before transfer. Critical Care Time (minutes): 0
--- NOTE | 2023-10-15 16:52 | PC.NURSE ---
Provider notified of side to side eye movement, temp 103.1, HR, increasing distension in abdomen. Provider at bedside
[2023-10-15 17:00] LABS: Appearance CSF CLEAR; Appearance CSF HAZY; CSF Tube # 4; Color CSF PINK; Red Blood Cell CSF 2508 MM*3; White Blood Cell CSF 64 MM*3
[2023-10-15 17:01] LABS: CSF Volume 3.5 ML; Color CSF COLORLESS; Red Blood Cell CSF 166 MM*3; White Blood Cell CSF 50 MM*3
--- NOTE | 2023-10-15 17:56 | P.CNNE_ITS ---
History of Present Illness Data of Consult Service Date: 10/15/23 Primary Care Provider: None Physician HPI Reason for consult: Unresponsive ? Seizure episodes This is a 77 years old man with type 2 diabetes mellitus was brought to the emergency department after he had an episode of new onset generalized seizure last night around 21:45. He was perfectly fine all day and earlier in the evening. HPI was provided by patient's son. Son noted patient partial facial droop and left arm weakness. After having the episode of seizure the patient was interactive and having a normal conversation with paramedics. The patient had another episode of seizure in the emergency department and received treatment with Ativan and Keppra. Son also stated that the patient was complaining of a headache for 2 days after sustaining a fall. The patient does not take aspirin or anticoagulation. In the ED, he was initially found to have marked hypertension of 217/95, however most recent one is 126/81. He has a mild degree of sinus tachycardia. Head CT scan without contrast showed no acute intracranial abnormality. Head and neck CTA was not performed. Brain MRI showed age appropriate atrophy and mild microvascular white matter changes. EEG was low voltage with muscle artifacts. No focal slowing or seizure discharges. Blood workup showed no initial leukocytosis, subsequently elevated. Lactic acid elevated. Spinal fluid: NO significant electrolyte imbalances. Bicarb is normal. His creatinine is 1.54 (no baseline found). His blood glucose 482. Spinal fluid protein elevated 227 with 50 WBC predom lymphocytes with normal sugar and 166 RBC. 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 [facility] Social History Social History Alcohol intake: current Alcohol intake frequency: holidays/special occasions only Alcohol type: wine Patient Tobacco Use Status: Never used Tobacco Smoked in Last 30 Days: No Use of substances other than those prescribed or required for medical reasons: No Advance Directives: No Advance Directives Information Provided: No Nutrition Risks: No Nutritional Risk service: No Meds Allergies Allergy/AdvReac Type Severity Reaction Status Date / Time No Known Allergies Allergy Verified 10/15/23 00:01 Active Medications: Current Medications Acetaminophen (Acetaminophen Supp 650 Mg Supp.Rect) 650 mg NM Q6H PRN PRN Reason: Fever Last Admin: 10/15/23 16:07 Dose: 650 mg Aspirin (Aspirin 300 Mg Supp.Rect) 300 mg NM DAILY [facility] Last Admin: 10/15/23 09:23 Dose: 300 mg Atorvastatin Calcium (Atorvastatin Calcium 80 Mg Tablet) 80 mg PO BEDTIME [facility] Dextrose (Dextrose 50 % 25 Gm/50 Ml Syringe) 25 gm IVPUSH Q15M PRN; Protocol PRN Reason: per Hypoglycemia Standing Ord. Glucose (Glucose Gel 15 Gm Gel..Gram.) 15 gm PO Q15M PRN; Protocol PRN Reason: per Hypoglycemia Standing Ord. Heparin Sodium (Porcine) (Heparin Sodium,Porcine 5,000 Unit/Ml Vial) 5,000 unit SUBCUT Q8H [facility] Last Admin: 10/15/23 16:48 Dose: 5,000 unit Levetiracetam 750 mg/ Sodium (Chloride) 107.5 mls @ 430 mls/hr IV Q12H [facility] Last Infusion: 10/15/23 09:48 Dose: Infused Ceftriaxone Sodium 2 gm/ (Sodium Chloride) 50 mls @ 100 mls/hr IV Q24H [facility] Last Infusion: 10/15/23 10:31 Dose: Infused Ampicillin Sodium 2 gm/ Sodium (Chloride) 100 mls @ 200 mls/hr IV Q6H [facility] Last Infusion: 10/15/23 17:40 Dose: Infused Vancomycin HCl 1,000 mg/ (Sodium Chloride) 270 mls @ 270 mls/hr IV Q24H [facility] Acyclovir Sodium 750 mg/ (Sodium Chloride) 265 mls @ 265 mls/hr IV Q8H [facility] Last Infusion: 10/15/23 17:41 Dose: Infused Insulin Human Lispro (Insulin Lispro 100 Unit/Ml 3 Ml Vial) 0 unit SUBCUT Q6H [facility]; Protocol Last Admin: 10/15/23 14:22 Dose: 2 unit Lorazepam (Lorazepam 2 Mg/Ml Vial) 2 mg IVPUSH ONCE PRN PRN Reason: seizure Pharmacy Consult (Consult Rx Vancomycin Dosing) 1 each MISCELLANE DAILY PRN PRN Reason: Consult order Home Medications Medication Instructions Recorded Confirmed Last Taken Type amlodipine 5 mg tablet 5 mg PO DAILY 10/15/23 Unknown History glimepiride 1 mg tablet 1 mg PO DAILY 10/15/23 Unknown History metformin 500 mg tablet 500 mg PO DAILY 10/15/23 Unknown History Physical Exam 2 Vital Signs: Vital Signs: Last Vital Signs Temp 103 F H 10/15/23 17:05 Pulse 131 H 10/15/23 17:05 Resp 18 10/15/23 17:05 BP 159/81 H 10/15/23 17:05 Pulse Ox 98 10/15/23 17:05 O2 Del Method Room Air 10/15/23 17:05 O2 Flow Rate 2 10/15/23 01:29 BMI result Body Mass Index 24.0 Neuro: Other: He is obtunded and unresponsive with regular respiration. He is febrile with a rectal temperature of 102.3. He does not follow commands. He has some spontaneous leg movements of flexion and extension bilaterally and occasionally movements of right upper extremity. There is less movement of the left upper extremity with increased tone. Occasional brief tremulousness is noted for a few seconds in his hands. No seizure activity noted. He has roving eye movements side to side at a very slow pace. Pupils are 3 mm and reactive to light. Corneal refflexes are intact. He has facial grimace that is symmetrical. There is moderate nuchal rigidity. Reflexes are hypoactive. Plantar responses are equivocal. Results Labs 10/15/23 07:50 10/15/23 17:52 Labs: Short CBC 10/14/23 10/15/23 Range/Units 23:14 07:50 WBC 9.2 15.4 H (4.8-10.8) X10*3/uL Hgb 13.0 L 14.5 (14.0-18.0) g/dl Hct 38.7 L 43.7 (42.0-52.0) % Plt Count 167 164 (160-400) X10*3/uL BMP 10/14/23 10/15/23 23:14 07:50 Sodium 138 Potassium 4.1 Chloride 102 Carbon Dioxide 25 BUN 19 H Creatinine 1.54 H 1.48 H Calcium 8.8 Liver Function 10/14/23 Range/Units 23:14 Total Bilirubin 0.5 (0.0-1.0) mg/dL AST 28 (5-37) U/L ALT 56 H (0-40) U/L Alkaline Phosphatase 94 (39-117) U/L Albumin 3.8 (3.5-5.0) g/dL Urine 10/15/23 Range/Units 04:12 Urine Color Yellow Urine Appearance Clear Urine pH 7.0 (5.0-9.0) Ur Specific [place] 1.025 (1.005-1.025) Urine Protein Negative (Neg-Trace) mg/dL Urine Glucose (UA) >=1000 H (Negative) mg/dL Microbiology Microbiology Results: Microbiology 10/15/23 13:55 Cerebrospinal Fluid Gram Stain - Preliminary 10/15/23 13:55 Cerebrospinal Fluid CSF Examination - Final 10/15/23 13:55 Cerebrospinal Fluid Fluid Description - Final Assessment and Plan (1) New onset seizure: Status: Acute New onset of 2 generalized tonic-clonic seizure in a previously healthy man who is febrile and obtunded at this time very strongly suspicious for encephalitis, probably herpes simplex. Preliminary spinal fluid shows elevated protein of 227, and white count of the 50 with 88% lymphocytes and 160 red cells. Spinal fluid PCR is pending. EEG shows a relatively flat background with almost continuous muscle artifactss but no clear seizure discharges and no evidence of status epilepticus. 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 Antibiotic coverage to cover the outside possibility of a bacterial infection. Continue Keppra as ordered. Followup MRI in 24 hours and a followup EEG tomorrow. Procedures Date of Service Date of Service: 10/15/23
[2023-10-15 18:12] LABS: VBG HCO3 18 mmol/L (22-26); VBG pCO2 28 mmHg; VBG pH 7.42 (7.32-7.43); VBG pO2 55 mmHg
[2023-10-15 18:18] LABS: ~Lactic Acid-LAB USE ONLY 4.4 mmol/L (0.5-2.0)
[2023-10-15 18:21] LABS: Alanine Aminotransferase 53 U/L (0-40); Albumin Level 3.9 g/dL (3.5-5.0); Alkaline Phosphatase 58 U/L (39-117); Anion Gap 18 (12-20); Aspartate Amino Transferase 39 U/L (5-37); Bilirubin Total 1.3 mg/dL (0.0-1.0); Blood Urea Nitrogen 14 mg/dL (9-16); Calcium 8.8 mg/dL (8.4-10.2); Carbon Dioxide 15 mmol/L (22-29); Chloride 106 mmol/L (96-108); Creatinine Clr Calc Pharmacy 45.1; Estimated Glomerular Filt Rate 50; Glucose Random 146 mg/dL (60-115); Phosphorus 2.3 mg/dL (2.7-4.5); Potassium 4.6 mmol/L (3.3-5.1); Sodium 134 mmol/L (135-145); Total Protein 8.7 g/dL (6.5-8.0)
[2023-10-15 18:26] LABS: Venous Blood Gas Refer to POC result
[2023-10-15 18:59] LABS: Glucose, Whole Blood 135 mg/dL (60-115)
--- NOTE | 2023-10-15 19:07 | PC.NURSE ---
rectal temp 101.5, temp displayed on cooling blanket reading 102
[2023-10-15 19:08] LABS: Glucose, Whole Blood 149 mg/dL (60-115)
--- NOTE | 2023-10-15 19:32 | PC.NURSE ---
Report given to ICU
[2023-10-15 19:58] LABS: Hematocrit 41.4 % (42.0-52.0); Hemoglobin 13.7 g/dl (14.0-18.0); Mean Corpuscular HGB Conc 33.1 g/dl (31.0-36.0); Mean Corpuscular Hemoglobin 29.2 pg (27.0-33.0); Mean Corpuscular Volume 88.3 fL (80.0-98.0); Mean Platelet Volume 12.3 fL (9.4-12.4); Platelet Count 192 X10*3/uL (160-400); Red Blood Count 4.69 X10*6/uL (4.60-5.80); Red Cell Distribution Width 13.4 % (11.0-16.0); White Blood Count 22.6 X10*3/uL (4.8-10.8)
[2023-10-15 20:39] LABS: SLIDE REVIEW MANUAL DIFF
[2023-10-15 20:43] LABS: Band Neutrophils Percent 4 % (3-5); Basophils Abs Manual 0.2 X10*3/uL (0.0-0.2); Basophils Percent Manual 1 % (0-2); Lymphocytes Absolute Manual 2.5 X10*3/uL (1.2-4.9); Lymphocytes Percent Manual 11 % (20-40); Monocytes Absolute Manual 1.8 X10*3/uL (0.1-1.2); Monocytes Percent Manual 8 % (2-11); Neutrophils Absolute Manual 18.1 X10*3/uL (2.0-8.3); Neutrophils Percent Manual 76 % (45-73)
[2023-10-15 20:44] LABS: RBC Morphology NORMAL
[2023-10-15 20:45] LABS: Platelet Estimate NORMAL (NORMAL); Platelet Morphology Comment NORMAL
[2023-10-15 20:48] LABS: Ammonia 43 umol/L (13-55)
[2023-10-15] MEDS: Potassium Phosphate/NS 15 MMOL/250 ML PLAST..BAG 62.5 MMOL IV (20:57)
--- NOTE | 2023-10-15 22:32 | PM.EVENT ---
Event Note Date of Service: 08/22/24 Event Note: seizures,encephalopathy meningitis/encephalitis panel unremarkable await further testing,continue meds Time Spent With Patient Time: Total time managing care of this patient today ____ minutes.
[2023-10-15 23:55] LABS: Glucose, Whole Blood 157 mg/dL (60-115)
[2023-10-16] VITALS (19 sets, daily range): BP systolic 144–180; BP diastolic 76–104; PULSE 112–133; RESP 15–20; TEMP 38.1–39.9; O2SAT 94–100; BMI 25.7
[2023-10-16] MEDS: Heparin Sodium,Porcine 5,000 UNIT/ML VIAL 5000 UNIT SUBCUT ×3 (00:35→15:35)
[2023-10-16 01:03] LABS: Lactic Acid 2.8 mmol/L (0.5-2.0)
[2023-10-16 02:41] LABS: Reflex Lactate? Lactic Acid Added
[2023-10-16] MEDS: Acetaminophen Supp 325 MG SUPP.RECT PR (02:48)
[2023-10-16] MEDS: Ampicillin Sodium 2 GM in 0.9 % Sodium Chloride 100 ML IV ×3 (03:00→14:01)
[2023-10-16 03:18] LABS: ~Lactic Acid-LAB USE ONLY 2.6 mmol/L (0.5-2.0)
--- NOTE | 2023-10-16 04:38 | PC.NURSE ---
ADMIT TO 261-1 APPROX 8PM...PATIENT REMAINS LETHARGIC/OBTUNDED...DOES NOT OPEN EYES TO COMMAND OR TO NOXIOUS STIMULI....DOES NOT FOLLOW ANY COMMANDS...OCASSIONALLY WEAKLY MOVES EXTREMETIES..CROSSES LEGS AFTER REPOSITIONING...RIGHT ARM SEMI-CONTRACTED...RARE SPONTANEOUS COUGH....RR 20 AND SAO2 97-98% ON ROOM AIR...PUPILS 3MM AND SLUGGISH...EYES ROVE SIDE-SIDE RANDOMLY DURING SERIAL NEURO CHECKS..ICU SQL DATABASE PROGRAMMER PRESENT AND AWARE...REMAINS FEBRILE..COOLING BLANKET IN PLACE AT ADMIT TO ICU..TEMP INITIALLY 101.8....TYLENOL 650 MG AK 11PM FOR TEMP 102.8 VIA [place] SENSOR...TEMPERATURE UNCHANGED AND VIVIENNE TO 103.8...ADDITIONAL TYLENOL 325MG AK GIVEN PER SQL DATABASE PROGRAMMER/NOV...CURRENT TEMP= 103.0...REMAINS S.TACH HR 118-130....BP STABLE...EVERETT YELLOW URINE...LACTIC 4.4 AND TRENDED DOWN TO 2.6...PATIENT'S SON VISITED AT 8:30PM...PLAN TO TRANSFER TO [facility] WHEN BED AVAILABLE PER SON AND ICU SQL DATABASE PROGRAMMER
[2023-10-16 04:58] LABS: Reflex Lactate? 2 Y
[2023-10-16 05:00] LABS: VBG Base Excess -3.8 mmol/L; VBG HCO3 18 mmol/L (22-26); VBG pCO2 27 mmHg; VBG pH 7.43 (7.32-7.43); VBG pO2 31 mmHg
[2023-10-16 05:09] LABS: Venous Blood Gas Refer to POC result
[2023-10-16 05:25] LABS: Alanine Aminotransferase 45 U/L (0-40); Alkaline Phosphatase 58 U/L (39-117); Anion Gap 18 (12-20); Aspartate Amino Transferase 33 U/L (5-37); Bilirubin Total 2.1 mg/dL (0.0-1.0); Blood Urea Nitrogen 20 mg/dL (9-16); Calcium 8.3 mg/dL (8.4-10.2); Carbon Dioxide 18 mmol/L (22-29); Chloride 100 mmol/L (96-108); Cholesterol 200 mg/dL (<200); Creatinine Clr Calc Pharmacy 45.8; Estimated Glomerular Filt Rate 51; Glucose Random 258 mg/dL (60-115); HDL Cholesterol 38 mg/dL (>40); LDL Cholesterol Calculated 138 mg/dL (<100); Magnesium 1.6 mg/dL (1.6-2.6); Phosphorus 2.7 mg/dL (2.7-4.5); Potassium 4.3 mmol/L (3.3-5.1); Sodium 132 mmol/L (135-145); Triglycerides 120 mg/dL (<150)
[2023-10-16 05:55] LABS: Glucose, Whole Blood 246 mg/dL (60-115)
[2023-10-16] MEDS: Insulin Lispro 100 UNIT/ML 3 ML VIAL SUBCUT ×2 (05:55→11:44)
[2023-10-16 06:36] LABS: ~Lactic Acid-LAB USE ONLY 2.9 mmol/L (0.5-2.0)
--- NOTE | 2023-10-16 08:30 | PM.NEUROCN ---
History of Present Illness Data of Consult Service Date: 10/16/23 Primary Care Provider: None Physician HPI Reason for consult: Encephalitis 77 years old man who came to emergency room after as generalized seizure. Apparently he did not have any acute medical illness before that except that couple of days before that he had fallen and might have hit is head. Initially he was not febrile and I talked to emergency room physician overnight and suggested that he should be admitted for further evaluation including MRI. At that time lumbar puncture was not considered because he was not febrile. 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 Since then he has not been responsive. Review of Systems Review of Systems: Could not be done with him [facility], [facility] Social History Social History Alcohol intake: current Alcohol intake frequency: holidays/special occasions only Alcohol type: wine Patient Tobacco Use Status: Never used Tobacco service: No Meds Allergies Allergy/AdvReac Type Severity Reaction Status Date / Time No Known Allergies Allergy Verified 10/15/23 00:01 Active Medications: Current Medications Acetaminophen (Acetaminophen Supp 650 Mg Supp.Rect) 650 mg TX Q6H PRN PRN Reason: Fever Last Admin: 10/15/23 23:05 Dose: 650 mg Aspirin (Aspirin 300 Mg Supp.Rect) 300 mg TX DAILY [facility] Last Admin: 10/15/23 09:23 Dose: 300 mg Atorvastatin Calcium (Atorvastatin Calcium 80 Mg Tablet) 80 mg PO BEDTIME [facility]ONYA Last Admin: 10/15/23 20:59 Dose: Not Given Dextrose (Dextrose 50 % 25 Gm/50 Ml Syringe) 25 gm IVPUSH Q15M PRN; Protocol PRN Reason: per Hypoglycemia Standing Ord. Glucose (Glucose Gel 15 Gm Gel..Gram.) 15 gm PO Q15M PRN; Protocol PRN Reason: per Hypoglycemia Standing Ord. Heparin Sodium (Porcine) (Heparin Sodium,Porcine 5,000 Unit/Ml Vial) 5,000 unit SUBCUT Q8H [facility] Last Admin: 10/16/23 08:14 Dose: 5,000 unit Levetiracetam 750 mg/ Sodium (Chloride) 107.5 mls @ 430 mls/hr IV Q12H [facility]ON[facility] Last Infusion: 10/15/23 22:08 Dose: Infused Ceftriaxone Sodium 2 gm/ (Sodium Chloride) 50 mls @ 100 mls/hr IV Q24H [facility] Last Infusion: 10/15/23 10:31 Dose: Infused Ampicillin Sodium 2 gm/ Sodium (Chloride) 100 mls @ 200 mls/hr IV Q6H [facility] Last Infusion: 10/16/23 04:24 Dose: Infused Vancomycin HCl 1,000 mg/ (Sodium Chloride) 270 mls @ 270 mls/hr IV Q24H [facility] Acyclovir Sodium 750 mg/ (Sodium Chloride) 265 mls @ 265 mls/hr IV Q12H [facility] Insulin Human Lispro (Insulin Lispro 100 Unit/Ml 3 Ml Vial) 0 unit SUBCUT Q6H [facility]; Protocol Last Admin: 10/16/23 05:55 Dose: 4 unit Lorazepam (Lorazepam 2 Mg/Ml Vial) 2 mg IVPUSH ONCE PRN PRN Reason: seizure Pharmacy Consult (Consult Rx Vancomycin Dosing) 1 each MISCELLANE DAILY PRN PRN Reason: Consult order Home Medications Medication Instructions Recorded Confirmed Last Taken Type amlodipine 5 mg tablet 5 mg PO DAILY 10/15/23 Unknown History glimepiride 1 mg tablet 1 mg PO DAILY 10/15/23 Unknown History metformin 500 mg tablet 500 mg PO DAILY 10/15/23 Unknown History Physical Exam Vital Signs: Vital Signs: Last Vital Signs Temp 102.7 F H 10/16/23 08:00 Pulse 129 H 10/16/23 08:00 Resp 18 10/16/23 08:00 BP 169/83 H 10/16/23 08:00 Pulse Ox 97 10/16/23 08:00 O2 Del Method Room Air 10/16/23 08:00 O2 Flow Rate 2 10/15/23 01:29 BMI result Body Mass Index 25.7 Neuro: Other: Not responsive to verbal or painful stimuli. His right arm was intermittently shaking and left arm was rigid with hyperflexion of left hand. There was no eye deviation. There was no obvious facial asymmetry. Plantars were equivocal. Deep tendon reflexes were absent. Results Labs 10/15/23 19:43 10/16/23 04:52 Labs: Short CBC 10/15/23 Range/Units 19:43 WBC 22.6 H (4.8-10.8) X10*3/uL Hgb 13.7 L (14.0-18.0) g/dl Hct 41.4 L (42.0-52.0) % Plt Count 192 (160-400) X10*3/uL BMP 10/15/23 10/15/23 10/16/23 07:50 17:52 04:52 Sodium 134 L 132 L Potassium 4.6 4.3 Chloride 106 100 Carbon Dioxide 15 L 18 L BUN 14 20 H Creatinine 1.48 H 1.37 1.35 Calcium 8.8 8.3 L Liver Function 10/15/23 10/16/23 Range/Units 17:52 04:52 Total Bilirubin 1.3 H 2.1 H (0.0-1.0) mg/dL AST 39 H 33 (5-37) U/L ALT 53 H 45 H (0-40) U/L Alkaline Phosphatase 58 58 (39-117) U/L Albumin 3.9 4.0 (3.5-5.0) g/dL Microbiology Microbiology Results: Microbiology 10/15/23 13:55 Cerebrospinal Fluid Gram Stain - Preliminary 10/15/23 13:55 Cerebrospinal Fluid CSF Examination - Final 10/15/23 13:55 Cerebrospinal Fluid Fluid Description - Final Assessment and Plan (1) Encephalitis: Status: Acute 77 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 Viral panel was negative. Clinically he seems to be in status epilepticus at this time. My recommendation is to give him a g of levetiracetam and increase the dose of levetiracetam to 1500 mg twice a day. After an hour of giving this does, an EEG is recommended. Ideally he should be in a facility with EEG monitoring and transferred to a tertiary care institution including [facility] is reasonable and preferred option. If no other test is positive, I will also consider sending is CSF for West Nile virus. Procedures Date of Service Date of Service: 10/16/23
--- NOTE | 2023-10-16 09:25 | P.CDIM_ITS ---
PROVIDER RESPONSE TEXT: To clarify, the appropriate diagnosis supported by the clinical indicators: Acute renal failure: Suspected QUERY TEXT: PHYSICIAN'S DOCUMENTATION REQUEST Date of Query: 10/16/2023 09:14 AM EST Patient Name: Ranulfo Diaz Admit Date: 10/15/2023 Dear Harvey Olguin, A review of the medical record indicates additional documentation may be needed. Please review below and update the documentation accordingly. Clinical Indicators: ED: On review of patients kidney function he is a diabetic and has CYNTHIA. Cr 1.54 Bun 19 Gfr 44 Please clarify which of the following accurately represents the patient's renal status: Acute renal failure suspected, possible, probable etc. Other Other (explain) Clinically unable to determine (explain) Thank you, Raiza Blake, CCS, CDIS Use of terms such as suspected, likely, concern for, or probable (associated with a specific diagnosi s that is being evaluated, monitored, or treated as if it exists) are acceptable and can be coded in the inpatient se tting, when documented at the time of discharge. Please use your independent medical judgment in providing your response. THIS QUERY IS PART OF THE PERMANENT MEDICAL RECORD
[2023-10-16] MEDS: levETIRAcetam in NaCl (iso-os) 1,500 MG/100 ML PIGGYBACK 400 MG IV (09:37)
[2023-10-16] MEDS: Aspirin 300 MG SUPP.RECT PR (09:38)
[2023-10-16] MEDS: vancomycin HCL 1,000 MG in 0.9 % Sodium Chloride 250 ML 270 MG IV (09:38)
[2023-10-16] MEDS: cefTRIAXone sodium 2 GM in 0.9 % Sodium Chloride 50 ML IV (09:38)
[2023-10-16] MEDS: levETIRAcetam in NaCl (iso-os) 1,000 MG/100 ML PIGGYBACK 400 MG IV (10:03)
[2023-10-16 10:43] LABS: Basophils Absolute Auto 0.1 X10*3/uL (0.0-0.2); Basophils Percent Auto 0.2 % (0-2); Eosinophils Percent Auto 0.1 % (0-4); Hematocrit 39.4 % (42.0-52.0); Hemoglobin 13.4 g/dl (14.0-18.0); Imm Gran Abs Auto 0.12 X10*3/uL (0.00-0.03); Imm Gran Pct Auto 0.5 % (0.0-0.4); Lymphocytes Absolute Auto 2.6 X10*3/uL (1.2-4.9); Lymphocytes Percent Auto 11.7 % (20-40); MANUAL DIFF FLAG SCAN; Mean Corpuscular Hemoglobin 29.8 pg (27.0-33.0); Mean Corpuscular Volume 87.8 fL (80.0-98.0); Mean Platelet Volume 12.6 fL (9.4-12.4); Monocytes Absolute Auto 1.7 X10*3/uL (0.1-1.2); Monocytes Percent Auto 7.6 % (2-11); Neutrophils Absolute Auto 17.5 x10*3/uL (2.0-8.3); Neutrophils Percent Auto 79.9 % (45-73); Platelet Count 206 X10*3/uL (160-400); Red Blood Count 4.49 X10*6/uL (4.60-5.80); Red Cell Distribution Width 13.2 % (11.0-16.0); SCAN SMEAR FLAG 1; White Blood Count 21.9 X10*3/uL (4.8-10.8)
--- NOTE | 2023-10-16 11:00 | EEG_ITS ---
This is a 16-channel portable EEG performed in ICU while patient is reported obtunded and unresponsive. Background EEG rhythm is frequently contaminated by muscle and lead artifacts and rarely background rhythm is seen that is low amplitude, mixed theta, beta with no obvious asymmetry or paroxysmal tendency. Photic stimulation or hyperventilation was not performed. Cardiac lead did not reveal any significant abnormality. IMPRESSION: Limited EEG, not revealing any obvious epileptic activity, though generalized slowing was noted. MD JAMES Hanks/RACHEL / [id number]
[2023-10-16 11:08] LABS: SLIDE REVIEW VERIFIED
[2023-10-16 11:43] LABS: Glucose, Whole Blood 160 mg/dL (60-115)
--- NOTE | 2023-10-16 12:19 | MHC.SLORD ---
Speech Language Pathology Order Status: Patient transferred to ICU w/ DX viral encephalitis, pending transfer to [facility]. RN reported patient not appropriate for swallow evaluation today. 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
--- NOTE | 2023-10-16 13:22 | P.PNCC_ITS ---
Subjective Subjective Date of Service: 10/16/23 Interval History: 77-year-old gentleman with underlying diabetes mellitus admitted on 10/15/2023 with observed seizure activity with period of normalcy between seizure and alteration of mental status. On ER evaluation patient also with facial droop and left arm weakness. Patient had another seizure in the emergency room that was treated with benzodiazepines and Keppra in remained significantly encephalopathic. His CT head showed no acute findings. MRI was negative for acute stroke. LP showed elevated protein and white blood cells with lymphocytic predominance, but so far with negative encephalitis/meningitis panel. Patient evaluated by Neurology with concern for possible status epilepticus on EEG. No events overnight. Remains profoundly encephalopathic. Reloaded with Keppra. Follow-up EEG is pending. Critical Care Time (minutes): 45 Physical Exam 2 Vital Signs: Vital Signs: Last Vital Signs Temp 101.9 F H 10/16/23 11:56 Pulse 117 H 10/16/23 13:00 Resp 19 10/16/23 13:00 BP 149/86 H 10/16/23 13:00 Pulse Ox 99 10/16/23 13:00 O2 Del Method Room Air 10/16/23 13:00 O2 Flow Rate 2 10/15/23 01:29 BMI result Body Mass Index 25.7 Const: General: no acute distress, awake and patient obtunded O rientation/consciousness: patient obtunded Eyes: Sclerae: sclerae normal EOM: EOMs intact bilaterally Neck: Neck: Yes no lymphadenopathy, Yes trachea midline and Yes supple Resp: Effort & Inspection: normal respiratory effort and no respiratory distress Auscultation: clear to auscultation bilaterally Cardio: Rate: tachycardic Rhythm: regular rhythm Heart sounds: no gallops, no murmurs and no rubs GI: Palpation (GI): Soft to palpation and Other GI palpation findings present ( Nontender) Auscultation: normal bowel sounds Neuro: General: patient obtunded Extrem: General: Yes no pedal edema, No clubbing and No cyanosis Objective Data Labs 10/16/23 04:45 10/16/23 04:52 Labs: Laboratory Results - last 24 hr 10/15/23 10/15/23 10/15/23 13:25 13:55 13:55 WBC RBC Hgb Hct MCV MCH MCHC RDW Plt Count MPV Immature Gran % (Auto) Neut % (Auto) Lymph % (Auto) [place] % (Auto) Eos % (Auto) Baso % (Auto) Lymph # (Auto) [place] # (Auto) Eos # (Auto) Baso # (Auto) Abs Immat Gran (auto) Absolute Neuts (auto) Absolute Nucleated RBC Nucleated RBC % (auto) Neutrophils % (Manual) Band Neutrophils % Lymphocytes % (Manual) Monocytes % (Manual) Basophils % (Manual) Abs Neuts (Manual) Lymphocytes # (Manual) Monocytes # (Manual) Basophils # (Manual) Platelet Estimate Plt Morphology Comment RBC Morphology Smear Tech's Comments VBG pH VBG pCO2 VBG pO2 VBG HCO3 VBG O2 Saturation VBG Base Excess Sodium Potassium Chloride Carbon Dioxide Anion Gap BUN Creatinine Estim Creat Clear Calc Estimated GFR POC Glucose 179 H Random Glucose Lactic Acid Lactic Acid F/U @ 2Hr Lactic Acid F/U @ 4Hr Calcium Phosphorus Magnesium Total Bilirubin AST ALT Alkaline Phosphatase Ammonia Total Protein Albumin Triglycerides Cholesterol LDL Cholesterol, Calc HDL Cholesterol CSF Tube Number 2 Cancelled CSF Volume CSF Appearance CSF Color CSF WBC CSF RBC CSF Neutrophils CSF Lymphocytes CSF Monocytes % CSF Appearance (b) CSF Glucose CSF Total Protein CSF C.neoform/gat PCR CSF CMV DNA (PCR) CSF Enterovirus (PCR) CSF E. coli K1 (PCR) CSF H. influenzae (PCR) CSF HSV I (PCR) CSF HSV II (PCR) CSF HHV 6 (PCR) CSF L.monocytogenes PCR CSF N. meningitidis PCR CSF Parechovirus (PCR) CSF S. agalactiae (PCR) CSF S. pneumoniae (PCR) CSF VZV (PCR) 10/15/23 10/15/23 10/15/23 13:55 13:55 13:55 WBC RBC Hgb Hct MCV MCH MCHC RDW Plt Count MPV Immature Gran % (Auto) Neut % (Auto) Lymph % (Auto) [place] % (Auto) Eos % (Auto) Baso % (Auto) Lymph # (Auto) [place] # (Auto) Eos # (Auto) Baso # (Auto) Abs Immat Gran (auto) Absolute Neuts (auto) Absolute Nucleated RBC Nucleated RBC % (auto) Neutrophils % (Manual) Band Neutrophils % Lymphocytes % (Manual) Monocytes % (Manual) Basophils % (Manual) Abs Neuts (Manual) Lymphocytes # (Manual) Monocytes # (Manual) Basophils # (Manual) Platelet Estimate Plt Morphology Comment RBC Morphology Smear Tech's Comments VBG pH VBG pCO2 VBG pO2 VBG HCO3 VBG O2 Saturation VBG Base Excess Sodium Potassium Chloride Carbon Dioxide Anion Gap BUN Creatinine Estim Creat Clear Calc Estimated GFR POC Glucose Random Glucose Lactic Acid Lactic Acid F/U @ 2Hr Lactic Acid F/U @ 4Hr Calcium Phosphorus Magnesium Total Bilirubin AST ALT Alkaline Phosphatase Ammonia Total Protein Albumin Triglycerides Cholesterol LDL Cholesterol, Calc HDL Cholesterol CSF Tube Number 1 4 CSF Volume 3.0 3.5 CSF Appearance HAZY CSF Color CSF WBC CSF RBC CSF Neutrophils CSF Lymphocytes CSF Monocytes % CSF Appearance (b) CSF Glucose CSF Total Protein CSF C.neoform/gat PCR CSF CMV DNA (PCR) CSF Enterovirus (PCR) CSF E. coli K1 (PCR) CSF H. influenzae (PCR) CSF HSV I (PCR) CSF HSV II (PCR) CSF HHV 6 (PCR) CSF L.monocytogenes PCR CSF N. meningitidis PCR CSF Parechovirus (PCR) CSF S. agalactiae (PCR) CSF S. pneumoniae (PCR) CSF VZV (PCR) 10/15/23 10/15/23 10/15/23 13:55 13:55 13:55 WBC RBC Hgb Hct MCV MCH MCHC RDW Plt Count MPV Immature Gran % (Auto) Neut % (Auto) Lymph % (Auto) [place] % (Auto) Eos % (Auto) Baso % (Auto) Lymph # (Auto) [place] # (Auto) Eos # (Auto) Baso # (Auto) Abs Immat Gran (auto) Absolute Neuts (auto) Absolute Nucleated RBC Nucleated RBC % (auto) Neutrophils % (Manual) Band Neutrophils % Lymphocytes % (Manual) Monocytes % (Manual) Basophils % (Manual) Abs Neuts (Manual) Lymphocytes # (Manual) Monocytes # (Manual) Basophils # (Manual) Platelet Estimate Plt Morphology Comment RBC Morphology Smear Tech's Comments VBG pH VBG pCO2 VBG pO2 VBG HCO3 VBG O2 Saturation VBG Base Excess Sodium Potassium Chloride Carbon Dioxide Anion Gap BUN Creatinine Estim Creat Clear Calc Estimated GFR POC Glucose Random Glucose Lactic Acid Lactic Acid F/U @ 2Hr Lactic Acid F/U @ 4Hr Calcium Phosphorus Magnesium Total Bilirubin AST ALT Alkaline Phosphatase Ammonia Total Protein Albumin Triglycerides Cholesterol LDL Cholesterol, Calc HDL Cholesterol CSF Tube Number CSF Volume CSF Appearance CLEAR CSF Color PINK COLORLESS CSF WBC 64 H* 50 H* CSF RBC 2508 CSF Neutrophils CSF Lymphocytes CSF Monocytes % CSF Appearance (b) CSF Glucose CSF Total Protein CSF C.neoform/gat PCR CSF CMV DNA (PCR) CSF Enterovirus (PCR) CSF E. coli K1 (PCR) CSF H. influenzae (PCR) CSF HSV I (PCR) CSF HSV II (PCR) CSF HHV 6 (PCR) CSF L.monocytogenes PCR CSF N. meningitidis PCR CSF Parechovirus (PCR) CSF S. agalactiae (PCR) CSF S. pneumoniae (PCR) CSF VZV (PCR) 10/15/23 10/15/23 10/15/23 13:55 13:55 13:55 WBC RBC Hgb Hct MCV MCH MCHC RDW Plt Count MPV Immature Gran % (Auto) Neut % (Auto) Lymph % (Auto) [place] % (Auto) Eos % (Auto) Baso % (Auto) Lymph # (Auto) [place] # (Auto) Eos # (Auto) Baso # (Auto) Abs Immat Gran (auto) Absolute Neuts (auto) Absolute Nucleated RBC Nucleated RBC % (auto) Neutrophils % (Manual) Band Neutrophils % Lymphocytes % (Manual) Monocytes % (Manual) Basophils % (Manual) Abs Neuts (Manual) Lymphocytes # (Manual) Monocytes # (Manual) Basophils # (Manual) Platelet Estimate Plt Morphology Comment RBC Morphology Smear Tech's Comments VBG pH VBG pCO2 VBG pO2 VBG HCO3 VBG O2 Saturation VBG Base Excess Sodium Potassium Chloride Carbon Dioxide Anion Gap BUN Creatinine Estim Creat Clear Calc Estimated GFR POC Glucose Random Glucose Lactic Acid Lactic Acid F/U @ 2Hr Lactic Acid F/U @ 4Hr Calcium Phosphorus Magnesium Total Bilirubin AST ALT Alkaline Phosphatase Ammonia Total Protein Albumin Triglycerides Cholesterol LDL Cholesterol, Calc HDL Cholesterol CSF Tube Number CSF Volume CSF Appearance CSF Color CSF WBC CSF RBC 166 CSF Neutrophils 14 7 CSF Lymphocytes 83 88 CSF Monocytes % 3 CSF Appearance (b) CSF Glucose CSF Total Protein CSF C.neoform/gat PCR CSF CMV DNA (PCR) CSF Enterovirus (PCR) CSF E. coli K1 (PCR) CSF H. influenzae (PCR) CSF HSV I (PCR) CSF HSV II (PCR) CSF HHV 6 (PCR) CSF L.monocytogenes PCR CSF N. meningitidis PCR CSF Parechovirus (PCR) CSF S. agalactiae (PCR) CSF S. pneumoniae (PCR) CSF VZV (PCR) 10/15/23 10/15/23 10/15/23 13:55 13:55 13:55 WBC RBC Hgb Hct MCV MCH MCHC RDW Plt Count MPV Immature Gran % (Auto) Neut % (Auto) Lymph % (Auto) [place] % (Auto) Eos % (Auto) Baso % (Auto) Lymph # (Auto) [place] # (Auto) Eos # (Auto) Baso # (Auto) Abs Immat Gran (auto) Absolute Neuts (auto) Absolute Nucleated RBC Nucleated RBC % (auto) Neutrophils % (Manual) Band Neutrophils % Lymphocytes % (Manual) Monocytes % (Manual) Basophils % (Manual) Abs Neuts (Manual) Lymphocytes # (Manual) Monocytes # (Manual) Basophils # (Manual) Platelet Estimate Plt Morphology Comment RBC Morphology Smear Tech's Comments VBG pH VBG pCO2 VBG pO2 VBG HCO3 VBG O2 Saturation VBG Base Excess Sodium Potassium Chloride Carbon Dioxide Anion Gap BUN Creatinine Estim Creat Clear Calc Estimated GFR POC Glucose Random Glucose Lactic Acid Lactic Acid F/U @ 2Hr Lactic Acid F/U @ 4Hr Calcium Phosphorus Magnesium Total Bilirubin AST ALT Alkaline Phosphatase Ammonia Total Protein Albumin Triglycerides Cholesterol LDL Cholesterol, Calc HDL Cholesterol CSF Tube Number CSF Volume CSF Appearance CSF Color CSF WBC CSF RBC CSF Neutrophils CSF Lymphocytes CSF Monocytes % 5 CSF Appearance (b) Clear, Colorless Cancelled CSF Glucose 195 CSF Total Protein 227.4 H Cancelled CSF C.neoform/gat PCR Not Detected CSF CMV DNA (PCR) Not Detected CSF Enterovirus (PCR) Not Detected CSF E. coli K1 (PCR) Not Detected CSF H. influenzae (PCR) Not Detected CSF HSV I (PCR) Not Detected CSF HSV II (PCR) Not Detected CSF HHV 6 (PCR) Not Detected CSF L.monocytogenes PCR Not Detected CSF N. meningitidis PCR Not Detected CSF Parechovirus (PCR) Not Detected CSF S. agalactiae (PCR) Not Detected CSF S. pneumoniae (PCR) Not Detected CSF VZV (PCR) Not Detected 10/15/23 10/15/23 10/15/23 17:52 17:55 18:03 WBC RBC Hgb Hct MCV MCH MCHC RDW Plt Count MPV Immature Gran % (Auto) Neut % (Auto) Lymph % (Auto) [place] % (Auto) Eos % (Auto) Baso % (Auto) Lymph # (Auto) [place] # (Auto) Eos # (Auto) Baso # (Auto) Abs Immat Gran (auto) Absolute Neuts (auto) Absolute Nucleated RBC Nucleated RBC % (auto) Neutrophils % (Manual) Band Neutrophils % Lymphocytes % (Manual) Monocytes % (Manual) Basophils % (Manual) Abs Neuts (Manual) Lymphocytes # (Manual) Monocytes # (Manual) Basophils # (Manual) Platelet Estimate Plt Morphology Comment RBC Morphology Smear Tech's Comments VBG pH 7.42 VBG pCO2 28 VBG pO2 55 VBG HCO3 18 L VBG O2 Saturation 87.0 VBG Base Excess -4.0 Sodium 134 L Potassium 4.6 Chloride 106 Carbon Dioxide 15 L Anion Gap 18 BUN 14 Creatinine 1.37 Estim Creat Clear Calc 45.1 Estimated GFR 50 POC Glucose 149 H Random Glucose 146 H Lactic Acid Lactic Acid F/U @ 2Hr Lactic Acid F/U @ 4Hr 4.4 H* Calcium 8.8 Phosphorus 2.3 L Magnesium 2.0 Total Bilirubin 1.3 H AST 39 H ALT 53 H Alkaline Phosphatase 58 Ammonia Total Protein 8.7 H Albumin 3.9 Triglycerides Cholesterol LDL Cholesterol, Calc HDL Cholesterol CSF Tube Number CSF Volume CSF Appearance CSF Color CSF WBC CSF RBC CSF Neutrophils CSF Lymphocytes CSF Monocytes % CSF Appearance (b) CSF Glucose CSF Total Protein CSF C.neoform/gat PCR CSF CMV DNA (PCR) CSF Enterovirus (PCR) CSF E. coli K1 (PCR) CSF H. influenzae (PCR) CSF HSV I (PCR) CSF HSV II (PCR) CSF HHV 6 (PCR) CSF L.monocytogenes PCR CSF N. meningitidis PCR CSF Parechovirus (PCR) CSF S. agalactiae (PCR) CSF S. pneumoniae (PCR) CSF VZV (PCR) 10/15/23 10/15/23 10/15/23 18:10 19:43 20:31 WBC 22.6 H RBC 4.69 Hgb 13.7 L Hct 41.4 L MCV 88.3 MCH 29.2 MCHC 33.1 RDW 13.4 Plt Count 192 MPV 12.3 Immature Gran % (Auto) Cancelled Neut % (Auto) Cancelled Lymph % (Auto) Cancelled [place] % (Auto) Cancelled Eos % (Auto) Cancelled Baso % (Auto) Cancelled Lymph # (Auto) Cancelled [place] # (Auto) Cancelled Eos # (Auto) Cancelled Baso # (Auto) Cancelled Abs Immat Gran (auto) Cancelled Absolute Neuts (auto) Cancelled Absolute Nucleated RBC 0.000 Nucleated RBC % (auto) 0.0 Neutrophils % (Manual) 76 H Band Neutrophils % 4 Lymphocytes % (Manual) 11 L Monocytes % (Manual) 8 Basophils % (Manual) 1 Abs Neuts (Manual) 18.1 H Lymphocytes # (Manual) 2.5 Monocytes # (Manual) 1.8 H Basophils # (Manual) 0.2 Platelet Estimate NORMAL Plt Morphology Comment NORMAL RBC Morphology NORMAL Smear Tech's Comments MANUAL DIFF VBG pH VBG pCO2 VBG pO2 VBG HCO3 VBG O2 Saturation VBG Base Excess Sodium Potassium Chloride Carbon Dioxide Anion Gap BUN Creatinine Estim Creat Clear Calc Estimated GFR POC Glucose 135 H Random Glucose Lactic Acid Lactic Acid F/U @ 2Hr Lactic Acid F/U @ 4Hr Calcium Phosphorus Magnesium Total Bilirubin AST ALT Alkaline Phosphatase Ammonia 43 Total Protein Albumin Triglycerides Cholesterol LDL Cholesterol, Calc HDL Cholesterol CSF Tube Number CSF Volume CSF Appearance CSF Color CSF WBC CSF RBC CSF Neutrophils CSF Lymphocytes CSF Monocytes % CSF Appearance (b) CSF Glucose CSF Total Protein CSF C.neoform/gat PCR CSF CMV DNA (PCR) CSF Enterovirus (PCR) CSF E. coli K1 (PCR) CSF H. influenzae (PCR) CSF HSV I (PCR) CSF HSV II (PCR) CSF HHV 6 (PCR) CSF L.monocytogenes PCR CSF N. meningitidis PCR CSF Parechovirus (PCR) CSF S. agalactiae (PCR) CSF S. pneumoniae (PCR) CSF VZV (PCR) 10/15/23 10/16/23 10/16/23 23:51 00:27 02:55 WBC RBC Hgb Hct MCV MCH MCHC RDW Plt Count MPV Immature Gran % (Auto) Neut % (Auto) Lymph % (Auto) [place] % (Auto) Eos % (Auto) Baso % (Auto) Lymph # (Auto) [place] # (Auto) Eos # (Auto) Baso # (Auto) Abs Immat Gran (auto) Absolute Neuts (auto) Absolute Nucleated RBC Nucleated RBC % (auto) Neutrophils % (Manual) Band Neutrophils % Lymphocytes % (Manual) Monocytes % (Manual) Basophils % (Manual) Abs Neuts (Manual) Lymphocytes # (Manual) Monocytes # (Manual) Basophils # (Manual) Platelet Estimate Plt Morphology Comment RBC Morphology Smear Tech's Comments VBG pH VBG pCO2 VBG pO2 VBG HCO3 VBG O2 Saturation VBG Base Excess Sodium Potassium Chloride Carbon Dioxide Anion Gap BUN Creatinine Estim Creat Clear Calc Estimated GFR POC Glucose 157 H Random Glucose Lactic Acid 2.8 H* Lactic Acid F/U @ 2Hr 2.6 H* Lactic Acid F/U @ 4Hr Calcium Phosphorus Magnesium Total Bilirubin AST ALT Alkaline Phosphatase Ammonia Total Protein Albumin Triglycerides Cholesterol LDL Cholesterol, Calc HDL Cholesterol CSF Tube Number CSF Volume CSF Appearance CSF Color CSF WBC CSF RBC CSF Neutrophils CSF Lymphocytes CSF Monocytes % CSF Appearance (b) CSF Glucose CSF Total Protein CSF C.neoform/gat PCR CSF CMV DNA (PCR) CSF Enterovirus (PCR) CSF E. coli K1 (PCR) CSF H. influenzae (PCR) CSF HSV I (PCR) CSF HSV II (PCR) CSF HHV 6 (PCR) CSF L.monocytogenes PCR CSF N. meningitidis PCR CSF Parechovirus (PCR) CSF S. agalactiae (PCR) CSF S. pneumoniae (PCR) CSF VZV (PCR) 10/16/23 10/16/23 10/16/23 04:45 04:52 04:55 WBC 21.9 H RBC 4.49 L Hgb 13.4 L Hct 39.4 L MCV 87.8 MCH 29.8 MCHC 34.0 RDW 13.2 Plt Count 206 MPV 12.6 H Immature Gran % (Auto) 0.5 H Neut % (Auto) 79.9 H Lymph % (Auto) 11.7 L [place] % (Auto) 7.6 Eos % (Auto) 0.1 Baso % (Auto) 0.2 Lymph # (Auto) 2.6 [place] # (Auto) 1.7 H Eos # (Auto) 0.0 Baso # (Auto) 0.1 Abs Immat Gran (auto) 0.12 H Absolute Neuts (auto) 17.5 H Absolute Nucleated RBC 0.000 Nucleated RBC % (auto) 0.0 Neutrophils % (Manual) Band Neutrophils % Lymphocytes % (Manual) Monocytes % (Manual) Basophils % (Manual) Abs Neuts (Manual) Lymphocytes # (Manual) Monocytes # (Manual) Basophils # (Manual) Platelet Estimate Plt Morphology Comment RBC Morphology Smear Tech's Comments VERIFIED VBG pH 7.43 VBG pCO2 27 VBG pO2 31 VBG HCO3 18 L VBG O2 Saturation 56.0 VBG Base Excess -3.8 Sodium 132 L Potassium 4.3 Chloride 100 Carbon Dioxide 18 L Anion Gap 18 BUN 20 H Creatinine 1.35 Estim Creat Clear Calc 45.8 Estimated GFR 51 POC Glucose Random Glucose 258 H Lactic Acid Lactic Acid F/U @ 2Hr Lactic Acid F/U @ 4Hr Calcium 8.3 L Phosphorus 2.7 Magnesium 1.6 Total Bilirubin 2.1 H AST 33 ALT 45 H Alkaline Phosphatase 58 Ammonia Total Protein 8.0 Albumin 4.0 Triglycerides 120 Cholesterol 200 H LDL Cholesterol, Calc 138 H HDL Cholesterol 38 L CSF Tube Number CSF Volume CSF Appearance CSF Color CSF WBC CSF RBC CSF Neutrophils CSF Lymphocytes CSF Monocytes % CSF Appearance (b) CSF Glucose CSF Total Protein CSF C.neoform/gat PCR CSF CMV DNA (PCR) CSF Enterovirus (PCR) CSF E. coli K1 (PCR) CSF H. influenzae (PCR) CSF HSV I (PCR) CSF HSV II (PCR) CSF HHV 6 (PCR) CSF L.monocytogenes PCR CSF N. meningitidis PCR CSF Parechovirus (PCR) CSF S. agalactiae (PCR) CSF S. pneumoniae (PCR) CSF VZV (PCR) 10/16/23 10/16/23 10/16/23 05:51 06:16 11:38 WBC RBC Hgb Hct MCV MCH MCHC RDW Plt Count MPV Immature Gran % (Auto) Neut % (Auto) Lymph % (Auto) [place] % (Auto) Eos % (Auto) Baso % (Auto) Lymph # (Auto) [place] # (Auto) Eos # (Auto) Baso # (Auto) Abs Immat Gran (auto) Absolute Neuts (auto) Absolute Nucleated RBC Nucleated RBC % (auto) Neutrophils % (Manual) Band Neutrophils % Lymphocytes % (Manual) Monocytes % (Manual) Basophils % (Manual) Abs Neuts (Manual) Lymphocytes # (Manual) Monocytes # (Manual) Basophils # (Manual) Platelet Estimate Plt Morphology Comment RBC Morphology Smear Tech's Comments VBG pH VBG pCO2 VBG pO2 VBG HCO3 VBG O2 Saturation VBG Base Excess Sodium Potassium Chloride Carbon Dioxide Anion Gap BUN Creatinine Estim Creat Clear Calc Estimated GFR POC Glucose 246 H 160 H Random Glucose Lactic Acid Lactic Acid F/U @ 2Hr Lactic Acid F/U @ 4Hr 2.9 H* Calcium Phosphorus Magnesium Total Bilirubin AST ALT Alkaline Phosphatase Ammonia Total Protein Albumin Triglycerides Cholesterol LDL Cholesterol, Calc HDL Cholesterol CSF Tube Number CSF Volume CSF Appearance CSF Color CSF WBC CSF RBC CSF Neutrophils CSF Lymphocytes CSF Monocytes % CSF Appearance (b) CSF Glucose CSF Total Protein CSF C.neoform/gat PCR CSF CMV DNA (PCR) CSF Enterovirus (PCR) CSF E. coli K1 (PCR) CSF H. influenzae (PCR) CSF HSV I (PCR) CSF HSV II (PCR) CSF HHV 6 (PCR) CSF L.monocytogenes PCR CSF N. meningitidis PCR CSF Parechovirus (PCR) CSF S. agalactiae (PCR) CSF S. pneumoniae (PCR) CSF VZV (PCR) Microbiology Microbiology Results: Microbiology 10/15/23 07:50 Blood - Venous Blood Culture - Preliminary No growth after 24 hours. 10/15/23 13:55 Cerebrospinal Fluid Gram Stain - Preliminary 10/15/23 13:55 Cerebrospinal Fluid CSF Examination - Final 10/15/23 13:55 Cerebrospinal Fluid Fluid Description - Final 10/15/23 13:55 Cerebrospinal Fluid CSF Culture - Preliminary No growth after 1 day 10/15/23 06:49 Blood - Venous Blood Culture - Preliminary No growth after 24 hours. Progress Note: A&P Assessment and plan (1) Encephalitis: Status: Acute (2) New onset seizure: Status: Acute Plan Assessment: 77-year-old gentleman admitted with encephalopathy, likely secondary to encephalitis with seizure activity. Plan: Neuro: Encephalopathy, likely secondary to encephalitis with seizure activity. Neurology service care appreciated. Reloaded with [facility]. Follow-up EEG is pending. Patient has been accepted to [facility] neurology unit, now pending bed availability. Cardiac: No acute issues. Pulmonary: No acute issues. Renal: No acute issues. Endo: No acute issues. Underlying diabetes mellitus on insulin protocol. GI: No acute issues. ID: No acute issues Heme/Onc: No acute issues. Psych: No acute issues. Miscellaneous: No acute issues. Prophylaxis: Heparin Diet: NPO Critical care time spent: 45 minutes Quality Stroke Does the patient have a stroke diagnosis?: Yes Reason for No Anti-thrombotic by Day Two: N/A - Med Ordered VTE Prior VTE?: No VTE Risk Level:: Medical - moderate - high VTE Device Contraindication: N/A - Device Ordered VTE Drug Contraindication: N/A - Med Ordered
[2023-10-16 17:08] LABS: Glucose, Whole Blood 142 mg/dL (60-115)
--- NOTE | 2023-10-16 17:47 | PM.DS ---
DS: Providers Provider Date of Service: 10/16/23 Date of admission: 10/15/23 02:50 Primary care physician: None Physician Consults: 10/15/23 06:04 Consult to Neurology Routine Consulting Provider: [facility] Reason for consultation: Stroke, new onset seiuzures. Has provider been notified: No 10/15/23 12:36 Consult to Infectious Diseases Stat Consulting Provider: [facility] [place] Infectious Disease Reason for consultation: fever Has provider been notified: Yes DS: Transfer Hospital Acceptance Name of Facility: [facility] DS: Diagnosis Discharge Diagnosis (1) Encephalitis: Status: Acute (2) New onset seizure: Status: Acute DS: Summary Hospital Course Hospital Course: 77-year-old gentleman with underlying diabetes mellitus admitted on 10/15/2023 with observed seizure activity with period of normalcy between seizure and alteration of mental status. On ER evaluation patient also with facial droop and left arm weakness. Patient had another seizure in the emergency room that was treated with benzodiazepines and Keppra in remained significantly encephalopathic. His CT head showed no acute findings. MRI was negative for acute stroke. LP showed elevated protein and white blood cells with lymphocytic predominance, but so far with negative encephalitis/meningitis panel. He was started on empiric antibiotics and acyclovir. Patient evaluated by Neurology with concern for possible status epilepticus on EEG. Per Neurology recommendation patient was re-loaded with Keppra. Follow up EEG and MRI were obtained and results are pending at the time of transfer. Per family request patient is being transferred to [facility] Neurological unit. Time Attestation Discharge coordination time: Greater than 30 minutes Quality: Safe Use of Opioids Does Pt have an Active Cancer Diagnosis on the Problem List?: No Quality: Stroke Does the patient have a stroke diagnosis?: No Physical Exam Vital Signs: Vital Signs: Last Vital Signs Temp 101.3 F H 10/16/23 17:00 Pulse 119 H 10/16/23 17:00 Resp 15 10/16/23 17:00 BP 148/76 H 10/16/23 17:00 Pulse Ox 97 10/16/23 17:00 O2 Del Method Room Air 10/16/23 17:00 O2 Flow Rate 2 10/15/23 01:29 BMI result Body Mass Index 25.7 Const: General: no acute distress and patient obtunded Orientation/consciousness: patient obtunded Eyes: Sclerae: sclerae normal EOM: Nystagmus present Neck: Neck: Yes no lymphadenopathy, Yes trachea midline and Yes supple Resp: Effort & Inspection: normal respiratory effort and no respiratory distress Auscultation: clear to auscultation bilaterally Cardio: Rate: tachycardic Rhythm: regular rhythm Heart sounds: no gallops, no murmurs and no rubs GI: Palpation (GI): Soft to palpation and Other GI palpation findings present ( Nontender) Auscultation: normal bowel sounds Neuro: General: patient obtunded Cranial nerves: Yes Nystagmus present Extrem: General: Yes no pedal edema, No clubbing and No cyanosis DS: Data Data Completed and Pending Labs on day of discharge: Laboratory Results - last 24 hr 10/15/23 10/15/23 10/15/23 17:52 17:55 18:03 WBC RBC Hgb Hct MCV MCH MCHC RDW Plt Count MPV Immature Gran % (Auto) Neut % (Auto) Lymph % (Auto) [place] % (Auto) Eos % (Auto) Baso % (Auto) Lymph # (Auto) [place] # (Auto) Eos # (Auto) Baso # (Auto) Abs Immat Gran (auto) Absolute Neuts (auto) Absolute Nucleated RBC Nucleated RBC % (auto) Neutrophils % (Manual) Band Neutrophils % Lymphocytes % (Manual) Monocytes % (Manual) Basophils % (Manual) Abs Neuts (Manual) Lymphocytes # (Manual) Monocytes # (Manual) Basophils # (Manual) Platelet Estimate Plt Morphology Comment RBC Morphology Smear Tech's Comments VBG pH 7.42 VBG pCO2 28 VBG pO2 55 VBG HCO3 18 L VBG O2 Saturation 87.0 VBG Base Excess -4.0 Sodium 134 L Potassium 4.6 Chloride 106 Carbon Dioxide 15 L Anion Gap 18 BUN 14 Creatinine 1.37 Estim Creat Clear Calc 45.1 Estimated GFR 50 POC Glucose 149 H Random Glucose 146 H Lactic Acid Lactic Acid F/U @ 2Hr Lactic Acid F/U @ 4Hr 4.4 H* Calcium 8.8 Phosphorus 2.3 L Magnesium 2.0 Total Bilirubin 1.3 H AST 39 H ALT 53 H Alkaline Phosphatase 58 Ammonia Total Protein 8.7 H Albumin 3.9 Triglycerides Cholesterol LDL Cholesterol, Calc HDL Cholesterol 10/15/23 10/15/23 10/15/23 18:10 19:43 20:31 WBC 22.6 H RBC 4.69 Hgb 13.7 L Hct 41.4 L MCV 88.3 MCH 29.2 MCHC 33.1 RDW 13.4 Plt Count 192 MPV 12.3 Immature Gran % (Auto) Cancelled Neut % (Auto) Cancelled Lymph % (Auto) Cancelled Louisa % (Auto) Cancelled Eos % (Auto) Cancelled Baso % (Auto) Cancelled Lymph # (Auto) Cancelled [place]a # (Auto) Cancelled Eos # (Auto) Cancelled Baso # (Auto) Cancelled Abs Immat Gran (auto) Cancelled Absolute Neuts (auto) Cancelled Absolute Nucleated RBC 0.000 Nucleated RBC % (auto) 0.0 Neutrophils % (Manual) 76 H Band Neutrophils % 4 Lymphocytes % (Manual) 11 L Monocytes % (Manual) 8 Basophils % (Manual) 1 Abs Neuts (Manual) 18.1 H Lymphocytes # (Manual) 2.5 Monocytes # (Manual) 1.8 H Basophils # (Manual) 0.2 Platelet Estimate NORMAL Plt Morphology Comment NORMAL RBC Morphology NORMAL Smear Tech's Comments MANUAL DIFF VBG pH VBG pCO2 VBG pO2 VBG HCO3 VBG O2 Saturation VBG Base Excess Sodium Potassium Chloride Carbon Dioxide Anion Gap BUN Creatinine Estim Creat Clear Calc Estimated GFR POC Glucose 135 H Random Glucose Lactic Acid Lactic Acid F/U @ 2Hr Lactic Acid F/U @ 4Hr Calcium Phosphorus Magnesium Total Bilirubin AST ALT Alkaline Phosphatase Ammonia 43 Total Protein Albumin Triglycerides Cholesterol LDL Cholesterol, Calc HDL Cholesterol 10/15/23 10/16/23 10/16/23 23:51 00:27 02:55 WBC RBC Hgb Hct MCV MCH MCHC RDW Plt Count MPV Immature Gran % (Auto) Neut % (Auto) Lymph % (Auto) [place] % (Auto) Eos % (Auto) Baso % (Auto) Lymph # (Auto) [place] # (Auto) Eos # (Auto) Baso # (Auto) Abs Immat Gran (auto) Absolute Neuts (auto) Absolute Nucleated RBC Nucleated RBC % (auto) Neutrophils % (Manual) Band Neutrophils % Lymphocytes % (Manual) Monocytes % (Manual) Basophils % (Manual) Abs Neuts (Manual) Lymphocytes # (Manual) Monocytes # (Manual) Basophils # (Manual) Platelet Estimate Plt Morphology Comment RBC Morphology Smear Tech's Comments VBG pH VBG pCO2 VBG pO2 VBG HCO3 VBG O2 Saturation VBG Base Excess Sodium Potassium Chloride Carbon Dioxide Anion Gap BUN Creatinine Estim Creat Clear Calc Estimated GFR POC Glucose 157 H Random Glucose Lactic Acid 2.8 H* Lactic Acid F/U @ 2Hr 2.6 H* Lactic Acid F/U @ 4Hr Calcium Phosphorus Magnesium Total Bilirubin AST ALT Alkaline Phosphatase Ammonia Total Protein Albumin Triglycerides Cholesterol LDL Cholesterol, Calc HDL Cholesterol 10/16/23 10/16/23 10/16/23 04:45 04:52 04:55 WBC 21.9 H RBC 4.49 L Hgb 13.4 L Hct 39.4 L MCV 87.8 MCH 29.8 MCHC 34.0 RDW 13.2 Plt Count 206 MPV 12.6 H Immature Gran % (Auto) 0.5 H Neut % (Auto) 79.9 H Lymph % (Auto) 11.7 L [place] % (Auto) 7.6 Eos % (Auto) 0.1 Baso % (Auto) 0.2 Lymph # (Auto) 2.6 Louisa # (Auto) 1.7 H Eos # (Auto) 0.0 Baso # (Auto) 0.1 Abs Immat Gran (auto) 0.12 H Absolute Neuts (auto) 17.5 H Absolute Nucleated RBC 0.000 Nucleated RBC % (auto) 0.0 Neutrophils % (Manual) Band Neutrophils % Lymphocytes % (Manual) Monocytes % (Manual) Basophils % (Manual) Abs Neuts (Manual) Lymphocytes # (Manual) Monocytes # (Manual) Basophils # (Manual) Platelet Estimate Plt Morphology Comment RBC Morphology Smear Tech's Comments VERIFIED VBG pH 7.43 VBG pCO2 27 VBG pO2 31 VBG HCO3 18 L VBG O2 Saturation 56.0 VBG Base Excess -3.8 Sodium 132 L Potassium 4.3 Chloride 100 Carbon Dioxide 18 L Anion Gap 18 BUN 20 H Creatinine 1.35 Estim Creat Clear Calc 45.8 Estimated GFR 51 POC Glucose Random Glucose 258 H Lactic Acid Lactic Acid F/U @ 2Hr Lactic Acid F/U @ 4Hr Calcium 8.3 L Phosphorus 2.7 Magnesium 1.6 Total Bilirubin 2.1 H AST 33 ALT 45 H Alkaline Phosphatase 58 Ammonia Total Protein 8.0 Albumin 4.0 Triglycerides 120 Cholesterol 200 H LDL Cholesterol, Calc 138 H HDL Cholesterol 38 L 10/16/23 10/16/23 10/16/23 05:51 06:16 11:38 WBC RBC Hgb Hct MCV MCH MCHC RDW Plt Count MPV Immature Gran % (Auto) Neut % (Auto) Lymph % (Auto) [place] % (Auto) Eos % (Auto) Baso % (Auto) Lymph # (Auto) [place] # (Auto) Eos # (Auto) Baso # (Auto) Abs Immat Gran (auto) Absolute Neuts (auto) Absolute Nucleated RBC Nucleated RBC % (auto) Neutrophils % (Manual) Band Neutrophils % Lymphocytes % (Manual) Monocytes % (Manual) Basophils % (Manual) Abs Neuts (Manual) Lymphocytes # (Manual) Monocytes # (Manual) Basophils # (Manual) Platelet Estimate Plt Morphology Comment RBC Morphology Smear Tech's Comments VBG pH VBG pCO2 VBG pO2 VBG HCO3 VBG O2 Saturation VBG Base Excess Sodium Potassium Chloride Carbon Dioxide Anion Gap BUN Creatinine Estim Creat Clear Calc Estimated GFR POC Glucose 246 H 160 H Random Glucose Lactic Acid Lactic Acid F/U @ 2Hr Lactic Acid F/U @ 4Hr 2.9 H* Calcium Phosphorus Magnesium Total Bilirubin AST ALT Alkaline Phosphatase Ammonia Total Protein Albumin Triglycerides Cholesterol LDL Cholesterol, Calc HDL Cholesterol 10/16/23 17:04 WBC RBC Hgb Hct MCV MCH MCHC RDW Plt Count MPV Immature Gran % (Auto) Neut % (Auto) Lymph % (Auto) [place] % (Auto) Eos % (Auto) Baso % (Auto) Lymph # (Auto) [place] # (Auto) Eos # (Auto) Baso # (Auto) Abs Immat Gran (auto) Absolute Neuts (auto) Absolute Nucleated RBC Nucleated RBC % (auto) Neutrophils % (Manual) Band Neutrophils % Lymphocytes % (Manual) Monocytes % (Manual) Basophils % (Manual) Abs Neuts (Manual) Lymphocytes # (Manual) Monocytes # (Manual) Basophils # (Manual) Platelet Estimate Plt Morphology Comment RBC Morphology Smear Tech's Comments VBG pH VBG pCO2 VBG pO2 VBG HCO3 VBG O2 Saturation VBG Base Excess Sodium Potassium Chloride Carbon Dioxide Anion Gap BUN Creatinine Estim Creat Clear Calc Estimated GFR POC Glucose 142 H Random Glucose Lactic Acid Lactic Acid F/U @ 2Hr Lactic Acid F/U @ 4Hr Calcium Phosphorus Magnesium Total Bilirubin AST ALT Alkaline Phosphatase Ammonia Total Protein Albumin Triglycerides Cholesterol LDL Cholesterol, Calc HDL Cholesterol Preliminary micro results at discharge 10/15/23 07:50 Blood Culture - Preliminary Blood - Venous No growth after 24 hours. 10/15/23 13:55 Gram Stain - Preliminary Cerebrospinal Fluid CSF Culture - Preliminary No growth after 1 day 10/15/23 06:49 Blood Culture - Preliminary Blood - Venous No growth after 24 hours. Discharge Plan Discharge Anticipated Discharge Date/Time: 10/16/23 17:54 Patient Disposition: [facility] Discharge Diagnosis: Encephalitis Referrals: Physician,None [Primary Care Provider] - 1 Week Discharge Medications: Continued metformin 500 mg Tablet 500 mg PO DAILY amlodipine 5 mg Tablet 5 mg PO DAILY glimepiride 1 mg Tablet 1 mg PO DAILY Discharge Orders: Discharge Order (Routine); Ordered 10/16/23 Ordered By: Harvey Olguin Activity on Discharge: bedrest Stand Alone Forms: Patient Portal Discharge page Care Plan Goals: Further neurologic evaluation. Health Concerns: Obtundation, encephalopathy. Plan of Treatment: Further neurologic evaluation. 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
[2023-10-18 12:28] LABS: VDRL Qualitative CSF Nonreactive (Nonreactive)
[2023-10-20 15:48] LABS: CMV DNA PCR Qn Source BLOOD; CMV DNA Qn PCR NOT DETECTED Log IU/mL (NOT DETECTED); CMV DNA Qn Real Time PCR NOT DETECTED (NOT DETECTED)
[2023-10-21 20:59] LABS: Lyme IgG CSF Immunoblot NO BANDS DETECTED; Lyme IgM CSF Immunoblot NO BANDS DETECTED
[2023-10-28 08:17] LABS: Total Protein, CSF 263 (H)
== END 2023-10-16 18:57 | disposition short-term general hospital (02) | DRG 98 ==
LOC: HO.ED 10-15 00:44 → HO.EDOVER 10-15 02:55 → HO.ICU 10-15 18:28
PROVIDERS: Hospitalist; Registered Nurse Community Health; Admitting Provider Internal Medicine; Emergency Provider Student in an Organized Health Care Education/Training Program; Visit Provider Internal Medicine Pulmonary Disease
DX: G04.90 Encephalitis and encephalomyelitis, unspecified (principal); N17.9 Acute kidney failure, unspecified; G40.901 Epilepsy, unspecified, not intractable, with status epilepticus; R29.810 Facial weakness; R47.81 Slurred speech; E11.65 Type 2 diabetes mellitus with hyperglycemia; Z79.84 Long term (current) use of oral hypoglycemic drugs; Z79.899 Other long term (current) drug therapy
CPT/HCPCS: 36415; 62328; 70450; 70551; 70553; 71045; 71250; 74176; 80053; 80061; 81001; 82140; 82565; 82803; 82945; 82947; 83036; 83605; 83735; 84100; 84157; 84166; 84484; 85007; 85025; 85027; 85610; 86592; 86617; 87015; 87040; 87070; 87116; 87205; 87206; 87483; 87497; 87502; 87635; 89051; 93005; 93306; 95816; 99285; J0131; J0133; J0290; J0696; J1644; J1953; J2060; J3370; J7120

== ENCOUNTER → 2023-10-14 22:55 | Outpatient (BNV) | payer OTHER, SELFPAY | PROVIDERS: Admitting Provider Internal Medicine; Emergency Provider Student in an Organized Health Care Education/Training Program; Visit Provider Internal Medicine Cardiovascular Disease | DX: R00.0 Tachycardia, unspecified (principal) | CPT/HCPCS: 93010 ==

== ENCOUNTER 2023-10-15 02:50 | Outpatient (BNV) | payer OTHER, SELFPAY | END 2023-10-15 07:00 | PROVIDERS: Admitting Provider Internal Medicine; Emergency Provider Student in an Organized Health Care Education/Training Program; Visit Provider Internal Medicine Cardiovascular Disease | DX: I63.9 Cerebral infarction, unspecified (principal); R00.0 Tachycardia, unspecified | CPT/HCPCS: 93306 ==

== ENCOUNTER → 2023-10-15 02:50 | Outpatient (BNV) | payer OTHER, SELFPAY | PROVIDERS: Admitting Provider Internal Medicine; Emergency Provider Student in an Organized Health Care Education/Training Program; Visit Provider Internal Medicine | DX: R56.9 Unspecified convulsions (principal); I63.9 Cerebral infarction, unspecified | CPT/HCPCS: 99223 ==

== ENCOUNTER → 2023-10-15 02:50 | Outpatient (BNV) | payer OTHER, SELFPAY | PROVIDERS: Admitting Provider Internal Medicine; Emergency Provider Student in an Organized Health Care Education/Training Program; Visit Provider Internal Medicine Pulmonary Disease | DX: G04.90 Encephalitis and encephalomyelitis, unspecified (principal); R56.9 Unspecified convulsions | CPT/HCPCS: 99239; 99499 ==

== ENCOUNTER → 2023-10-15 02:50 | Outpatient (BNV) | payer OTHER, SELFPAY | PROVIDERS: Admitting Provider Internal Medicine; Emergency Provider Student in an Organized Health Care Education/Training Program; Visit Provider Psychiatry & Neurology Neurology | DX: R56.9 Unspecified convulsions (principal) | CPT/HCPCS: 99222 ==

== ENCOUNTER → 2023-10-15 02:50 | Outpatient (BNV) | payer OTHER, SELFPAY | PROVIDERS: Admitting Provider Internal Medicine; Emergency Provider Student in an Organized Health Care Education/Training Program; Visit Provider Physician Assistant Surgical | DX: G93.40 Encephalopathy, unspecified (principal) | CPT/HCPCS: 62328; 99499 ==